=== PATIENT | male | born 1940 | race Caucasian/White ===

== ENCOUNTER 2016-10-08 06:04 | Day surgery (SDC) | payer MEDICARE, OTHER ==
[2016-10-08] MEDS ORDERED: Dextrose 5%-Lactated Ringers 1,000 ML IV SCH (07:00)
[2016-10-08] MEDS ORDERED: Glycopyrrolate 0.2 MG/ML 2 ML SYRINGE IVPUSH ONE (07:30)
[2016-10-08] MEDS ORDERED: fentaNYL 100 MCG/2 ML SDV ONE (07:32)
[2016-10-08] MEDS ORDERED: Midazolam 1 MG/ML 2 ML SDV ONE (07:32)
[2016-10-08] MEDS ORDERED: Propofol 200 MG/20 ML SDV ONE (07:32)
[2016-10-08 08:49] VITALS: BP 121/57
--- NOTE | 2016-10-17 09:10 | OR ---
DATE OF PROCEDURE: 10/08/2016 PREOPERATIVE DIAGNOSES: Epigastric pain, nausea, and emesis, status post proximal gastrectomy with Mateo-en-Y reconstruction. POSTOPERATIVE DIAGNOSES: 1. Erosive gastritis within the gastric pouch. 2. Partial small bowel obstruction with large amount of retained food in esophagus pouch and small bowel with apparent partial obstruction at the outlet of gastrojejunostomy. OPERATIVE PROCEDURE: Upper GI endoscopy with biopsies of gastric pouch for CLOtest. ANESTHESIA: IV sedation. INDICATION FOR PROCEDURE: This is a 75-year-old male presenting with some ongoing epigastric pain as well as intermittent nausea and emesis, appears to be having some problems with aspiration of esophageal contents intermittently as well. Plan is to proceed with upper GI endoscopy with biopsies and/or dilation as indicated. Potential risks including bleeding and perforation were discussed, and the patient wishes to proceed. DETAILS OF PROCEDURE: The patient was taken to the operating room and placed in a left lateral decubitus position. IV sedation was administered, after which, the upper GI endoscope was passed orally through the length of the esophagus and into the gastric pouch, and from there into the gastrojejunostomy. It was noted that medial, distal, and mid portions of the esophagus had some retained liquid and solid food within them. There was no significant esophageal dilation. As one passed into the gastric pouch, the gastrojejunostomy was unremarkable other than for there being some erosive changes within the gastric pouch at a point just below the esophagogastric junction. The gastric pouch site was filled with quite a bit of food. As one passed into the area of gastrojejunostomy, it was noted that the outlet of the gastrojejunostomy was quite narrowed and that the scope could not entirely pass through that area. This was quite tortuous and did not appear to be amenable to dilation in a safe manner. At that point, biopsies were obtained from the gastric pouch and sent for CLOtest for H. pylori. The scope was withdrawn, and the procedure was concluded. The patient was taken to the recovery room in satisfactory condition. At this point, the plan will be to proceed with revision of the area of the proximal gastrectomy and gastrojejunostomy, and this may potentially involve the resection of the distal esophagus, i.e. esophagogastrectomy versus the proximal-most stomach, i.e. a proximal gastrectomy with in each case a Mateo-en-Y reconstruction. The potential risks of the procedure were reviewed with the patient, his son and daughter who were present, and they wished to proceed with surgical intervention next Tuesday in early course of this to avoid pulmonary complications in a patient with otherwise fairly significant COPD would appear to be warranted. Bjorn Roca MD /[id number]
== END 2016-10-08 09:30 | disposition home or self-care (01) ==
LOC: JP.SDS 06:04
PROVIDERS: ATTEND Surgery
DX: K29.00 Acute gastritis without bleeding (principal); K56.69 Other intestinal obstruction; T18.128A Food in esophagus causing other injury, initial encounter; I10 Essential (primary) hypertension; K21.9 Gastro-esophageal reflux disease without esophagitis; Z90.3 Acquired absence of stomach [part of]; Z98.890 Other specified postprocedural states; F17.200 Nicotine dependence, unspecified, uncomplicated
CPT/HCPCS: 43239; 87081; J2250; J2704; J3010; J7042

== ENCOUNTER 2016-10-12 07:16 | Inpatient (IN) | payer MEDICARE, OTHER ==
[2016-10-12] MEDS ORDERED: Gabapentin 300 MG Cap PO ONE (07:30)
[2016-10-12] MEDS ORDERED: Celecoxib 200 MG Cap PO ONE (07:30)
[2016-10-12] MEDS ORDERED: Scopolamine 1.5 MG Transdermal Patch TOP SCH (07:30)
[2016-10-12] MEDS ORDERED: Acetaminophen 500 MG Tab PO ONE (07:30)
[2016-10-12] MEDS ORDERED: Bupivacaine 0.5%/EPINEPHrine 1:200,000 50 ML MDV ONE (08:28)
[2016-10-12] MEDS ORDERED: Meropenem 500 MG SDV ONE (08:29)
[2016-10-12] MEDS ORDERED: Dextrose 5%-Lactated Ringers 1,000 ML IV SCH (08:30)
[2016-10-12] MEDS ORDERED: Albuterol/Ipratropium 3.0-0.5 MG/3 ML Neb Soln NEB ONE (09:00)
[2016-10-12] MEDS ORDERED: cefOXitin 2 GM in Sodium Chloride 0.9% 50 ML IV ONE (09:15)
[2016-10-12] MEDS ORDERED: fentaNYL 100 MCG/2 ML SDV ONE (09:15)
[2016-10-12] MEDS ORDERED: Neostigmine Methylsulfate 1 MG/ML 5 ML Syringe ONE (09:16)
[2016-10-12] MEDS ORDERED: Midazolam 1 MG/ML 2 ML SDV ONE (09:16)
[2016-10-12] MEDS ORDERED: Ondansetron 4 MG/2 ML SDV ONE (09:16)
[2016-10-12] MEDS ORDERED: Rocuronium 50 MG/5 ML Vial ONE (09:16)
[2016-10-12] MEDS ORDERED: Dexamethasone 4 MG/ML SDV ONE (09:16)
[2016-10-12] MEDS ORDERED: Propofol 200 MG/20 ML SDV ONE (09:16)
[2016-10-12] MEDS ORDERED: Succinylcholine/Normal Saline 200 MG/10 ML Syringe ONE (09:16)
[2016-10-12] MEDS ORDERED: Lidocaine 2% 100 MG/5 ML Syringe IVPUSH ONE (09:30)
[2016-10-12] MEDS ORDERED: Ropivacaine 49 ML, Dexamethasone 8 MG, EPINEPHrine 0.4 MG, Sodium Chloride 0.9% 28.6 ML NERVRT ONE ×4 (09:30)
[2016-10-12] MEDS ORDERED: Ketamine 500 MG/5 ML MDV IV SCH (09:30)
[2016-10-12] MEDS: Lidocaine 0.4%/D5W 2 GM/500 ML BAG IV SCH (13:24)
[2016-10-12] MEDS ORDERED: Albuterol/Ipratropium 3.0-0.5 MG/3 ML Neb Soln INH PRN (13:35)
[2016-10-12] MEDS ORDERED: Metoclopramide 10 MG/2 ML SDV IV PRN (13:42)
[2016-10-12] MEDS ORDERED: diphenhydrAMINE 50 MG/ML SDV IV PRN (13:43)
[2016-10-12] MEDS ORDERED: hydrOXYzine HCl 50 MG/ML SDV IM PRN (14:00)
[2016-10-12] MEDS ORDERED: SCOPOLAMINE PATCH ASK TOP SCH (14:00)
[2016-10-12] MEDS ORDERED: Ondansetron 4 MG/2 ML SDV IVPUSH PRN (14:00)
[2016-10-12] MEDS: Labetalol 20 MG/4 ML Syringe IVPUSH PRN ×2 (14:05→15:55)
[2016-10-12] MEDS: Albuterol/Ipratropium 3.0-0.5 MG/3 ML Neb Soln INH SCH ×2 (14:44→21:25)
[2016-10-12] MEDS: cefOXitin 2 GM in Sodium Chloride 0.9% 50 ML IV SCH ×2 (15:32→21:25)
[2016-10-12] MEDS: Pantoprazole 40 MG Vial IVPUSH SCH (15:35)
[2016-10-12] MEDS: SCOPOLAMINE PATCH CHECK TOP SCH (15:42)
[2016-10-12] MEDS: Acetaminophen Soln 650 MG/20.3 ML UD Cup PO SCH ×2 (15:43→21:25)
[2016-10-12] MEDS: Heparin Sodium 5,000 Units/ML Vial SUBCUT SCH (18:06)
[2016-10-12] MEDS: MVI, Adult with Vitamin K 10 ML, Thiamine 200 MG, Chromium/Copper/Mang/Selen/Zn 1 ML in... IV SCH ×4 (18:07)
[2016-10-12] MEDS: Gabapentin 300 MG Cap PO SCH (21:25)
[2016-10-12] MEDS: Tamsulosin 0.4 MG Cap.ER PO SCH (21:25)
[2016-10-13] MEDS: Dextrose 5%-Lactated Ringers 1,000 ML IV SCH ×2 (00:34→07:03)
[2016-10-13] MEDS: Lidocaine 0.4%/D5W 2 GM/500 ML BAG IV SCH (02:32)
[2016-10-13] MEDS ORDERED: Iohexol 647 MG/ML 50 ML SDV PO STA (02:38)
[2016-10-13] MEDS: cefOXitin 2 GM in Sodium Chloride 0.9% 50 ML IV SCH (02:38)
[2016-10-13] MEDS: Acetaminophen Soln 650 MG/20.3 ML UD Cup PO SCH ×4 (04:19→21:49)
[2016-10-13] MEDS: Heparin Sodium 5,000 Units/ML Vial SUBCUT SCH ×2 (05:46→17:18)
[2016-10-13] MEDS ORDERED: Dextrose 5%-Lactated Ringers 1,000 ML IV SCH (07:13)
[2016-10-13] MEDS: Albuterol/Ipratropium 3.0-0.5 MG/3 ML Neb Soln INH SCH ×4 (07:21→21:49)
[2016-10-13] MEDS: Celecoxib 200 MG Cap PO SCH (08:00)
[2016-10-13] MEDS: SCOPOLAMINE PATCH CHECK TOP SCH (08:25)
[2016-10-13] MEDS: Gabapentin 300 MG Cap PO SCH ×3 (08:25→21:47)
--- NOTE | 2016-10-13 08:34 | PN ---
DATE OF SERVICE: 10/13/2016 SUBJECTIVE: Ariel is postop day #1. He is alert and orientated. He states his pain is controlled. He was up ambulating, once felt a little bit unsteady. Nursing reported some wheezing and crackles in the bases of his lungs. ORTEGA drain put out 15 mL/24 hours of a light pink serous drainage. REVIEW OF SYSTEMS: Remainder of review of systems negative for any pertinent positives and negatives. OBJECTIVE: GENERAL: Ariel Eric is a 75-year-old male. He is alert and orientated. Color good. VITAL SIGNS: TPR 97.6, 63, 18, blood pressure 132/61. HEENT: Negative. NECK: Supple. HEART: Regular rate and rhythm. LUNGS: Clear. Currently, I do not hear any rales, rhonchi, or wheezing. ABDOMEN: Dressings dry and intact. Abdominal binder is on. ORTEGA drain intact, as stated above. EXTREMITIES: Without peripheral edema and SCDs are on. ASSESSMENT: Diagnostic laparoscopy with lysis of adhesions, esophagogastrectomy with Mateo- en-Y esophagojejunostomy, repair of recurrent paraesophageal diaphragmatic hernia, removal of outlet adherent portion of the distal stomach adjacent to pressure block in the small bowel for obstruction at the gastrojejunostomy junction, obstruction at the formation of the previous jejunostomy, and recurrent paraesophageal hernia. Date of surgery, 10/12/2016. PLAN: 1. Decrease IV to 80 mL/hour. 2. Coumadin 7.5 mg today, ask in a.m. 3. Daily PT/INR x5. 4. Dressing off, may shower. 5. Discontinue telemetry after the lidocaine drip is in. 6. Start Flomax 0.4 mg p.o. daily. 7. Restart metoprolol tartrate 25 mg p.o. daily. 8. Good pulmonary toilet encouraged due to previous lung status and history of smoking. 9. Step-2 without cereal bariatric diet and Dietary consult. 10.We will evaluate p.r.n. or in a.m. Ginette Rivera PA-C /[id number]
[2016-10-13] MEDS ORDERED: Tamsulosin 0.4 MG Cap.ER PO SCH (09:00)
[2016-10-13] MEDS: Metoprolol Tartrate 25 MG Tab PO SCH (09:40)
--- NOTE | 2016-10-13 12:21 | CR ---
Contrast was the gastric pouch and within a small bowel loop eccentric to the right. No gross eviden ce for contrast leakage.
[2016-10-13] MEDS ORDERED: Warfarin 2.5 MG Tab PO ONE (13:00)
[2016-10-13] MEDS: MVI, Adult with Vitamin K 10 ML, Thiamine 200 MG, Chromium/Copper/Mang/Selen/Zn 1 ML in... IV SCH ×4 (15:27)
[2016-10-13] MEDS: Pantoprazole 40 MG Vial IVPUSH SCH (15:27)
[2016-10-13] MEDS ORDERED: Ondansetron 4 MG Tab.DIS PO PRN (15:52)
[2016-10-13] MEDS: Tamsulosin 0.4 MG Cap.ER PO SCH (21:47)
[2016-10-14] MEDS: Acetaminophen Soln 650 MG/20.3 ML UD Cup PO SCH (05:10)
[2016-10-14] MEDS: Heparin Sodium 5,000 Units/ML Vial SUBCUT SCH (05:10)
[2016-10-14] MEDS: Albuterol/Ipratropium 3.0-0.5 MG/3 ML Neb Soln INH SCH (07:21)
[2016-10-14] MEDS ORDERED: Pantoprazole 40 MG Tab.CR PO SCH (07:30)
[2016-10-14 07:35] VITALS: BP 129/64
[2016-10-14] MEDS: Metoprolol Tartrate 25 MG Tab PO SCH (08:37)
[2016-10-14] MEDS: Celecoxib 200 MG Cap PO SCH (08:37)
[2016-10-14] MEDS: Gabapentin 300 MG Cap PO SCH (08:38)
[2016-10-14] MEDS ORDERED: Magnesium Hydroxide 400 MG/5 ML Susp 30 ML Cup PO ONE (09:00)
[2016-10-14] MEDS ORDERED: Cyanocobalamin (Vitamin B12) 1,000 MCG/ML SDV IM ONE (09:00)
--- NOTE | 2016-10-14 11:01 | DISCH ---
ADMISSION DIAGNOSES: 1. Partial small-bowel obstruction. 2. Paraesophageal hernia. 3. Essential hypertension. 4. Dyslipidemia. 5. Esophageal reflux. 6. Atrial fibrillation. 7. Chronic anticoagulation therapy. 8. Tobacco use disorder. DISCHARGE DIAGNOSES: Diagnostic laparoscopy with lysis of adhesion, esophagogastrectomy with Mateo-en-Y esophagojejunostomy, repair of recurrent paraesophageal diaphragmatic hernia, removal of outlet obstruction adherent to portion of the distal stomach adjacent to the small bowel for obstruction at the gastrojejunostomy junction, obstruction at the formation of the previous jejunostomy, and recurrent paraesophageal hernia. Date of surgery, 10/12/2016. HISTORY: Ariel Eric is a 75-year-old male with increasing abdominal pain. After preoperative evaluation and discussion of possible risks and possible complications, he wished to proceed with surgical procedure. HOSPITAL COURSE: Ariel had his surgery on 10/12/2016. He had no operative complications. On postop day #1, he was started on a step-2 gastric bypass diet without cereal. His oral intake was adequate at 2500. He had ORTEGA drain, and they put out 85 mL. His pain is controlled. On postop day #2, Ariel Eric was able to be discharged to home. He received dietary instructions prior to being discharged. PHYSICAL EXAMINATION: GENERAL: Ariel Eric is a 75-year-old male. Alert and orientated. VITAL SIGNS: Height is 5 feet 8 inches. Weight is 206 pounds 9.6 ounces. TPR is 98.3, 94, 16, blood pressure 146/68. O2 saturations by pulse oximetry 93%. HEENT: Negative. NECK: Supple. HEART: Regular rate and rhythm. LUNGS: Clear. ABDOMEN: Sutures in place, 4x4 over ORTEGA drain site. Abdominal binder has been on. EXTREMITIES: Without peripheral edema. DISPOSITION: Discharged to home. CONDITION: Stable and improving. FOLLOWUP APPOINTMENT: Ginette Rivera PA-C, on 10/20/2016 at 10:15 a.m. HOME MEDICATIONS: 1. Tylenol 650 mg q.6 hours for pain, continue for 2 weeks, then as needed, and he should get one bottle at 650 mg per 20.3 mL. 2. Celebrex 200 mg oral daily, #14. 3. Zofran 4 mg oral every 4 hours p.r.n. nausea. 4. Protonix 40 mg oral daily, #30. 5. He is to resume his home medications of Flomax 0.4 mg oral daily; warfarin 5 mg every Tuesday, Tuesday, Tuesday, Tuesday, and Tuesday and 7.5 mg every Tuesday and . DIET: Step-2 gastric bypass diet without cereal for 2 weeks. Drink 8 to 10 glasses of water a day. ACTIVITY: No lifting greater than 10 pounds for 2 weeks. Walk 6 times inside your home. DISCHARGE INSTRUCTIONS: Driving, do not drive while on pain medication. May shower. Notify provider if any fever, increased pain, nausea, or vomiting. Keep site clean and dry. Wear abdominal binder for 2 weeks and then as tolerated. Use incentive spirometer 10 times every hour while awake.
[2016-10-14] MEDS ORDERED: Warfarin 2.5 MG Tab PO SCH (13:00)
--- NOTE | 2016-10-23 16:58 | OR ---
DATE OF PROCEDURE: 10/12/2016 PREOPERATIVE DIAGNOSES: 1. Obstruction of gastrojejunostomy with marked eschar formation at and around the gastrojejunostomy. 2. Recurrent paraesophageal diaphragmatic hernia. OPERATIVE PROCEDURES: 1. Diagnostic laparoscopy with lysis of adhesions and. a. Esophagogastrectomy with Mateo-en-Y esophagojejunostomy (20298). b. Repair of paraesophageal diaphragmatic hernia (46448). c. Removal of additional adherent portion of the more distal stomach adherent to previous blind end of small bowel. ANESTHESIA: General. 911 DISPATCHER: NOMI May student. INDICATION FOR PROCEDURE: This is a 75-year-old, status post previous Mateo-en-Y anastomosis to the proximal gastrectomy for refractory gastroesophageal reflux disease and now presents with an obstructive pattern at the gastrojejunostomy. Plan is to do diagnostic laparoscopy with re-resection of that area with a Mateo-en-Y reconstruction. The potential risks of the procedure including bleeding, infection, injury to underlying viscera, possible leaks from GI tract anastomoses were reviewed, and the patient wishes to proceed. DETAILS OF PROCEDURE: The patient was taken to the operating room and placed in a supine position. After general endotracheal anesthesia was induced, he was converted to a lithotomy position. A Lorenz catheter was inserted and the bilateral transverse abdominis plane blocks were placed under ultrasound guidance. The guidewire was then prepped and draped. At 15 cm inferior, 5 cm left of xiphoid process, transverse incision was made and the peritoneal cavity entered under direct vision with Optiview trocar inflated to 15 mmHg pressure with CO2. Laparoscope was then reinserted and following this, 5 additional trocars were placed across the mid abdomen and general exploration was undertaken. As expected, the patient had some recurrence of the paraesophageal diaphragmatic hernia and after careful dissection reduction of this, there was noted to be dense scar around the gastrojejunostomy. The only safe plane of dissection appeared to be the esophagus, perhaps a cm or two above the esophagogastric junction. This area was encircled at that point and the esophagus then divided with two BLAIR black loads. The Mateo limb was then divided as that approached the gastrojejunostomy with a rodriguez load and the mesentery to the small bowel then divided with Harmonic scalpel. The specimen consisting of the previous gastric pouch and gastrojejunostomy was then resected. This included also the distal esophagus, so this would be an esophagogastrectomy specimen. Once the vascular attachments were divided with Harmonic scalpel, that specimen was noted to have an additional adherence to the previously bypassed more distal stomach. This area was then resected as well. After detaching it from the Mateo limb, the separate stomach resection was then accomplished with a BLAIR black load as well. Both specimens were then delivered from the field. Paraesophageal diaphragmatic hernia was then re-repaired with some additional 0 Ethibond sutures reinforced with PTFE pledgets, bites of the esophagus were obtained to help maintain an intraabdominal location. The anvil of a 25-mm EEA stapler was then attached to [place] sump type tube. The latter was brought down through the mouth and taken out through a small opening in the divided esophagus allowing the anvil to be pulled down within it as well. The Mateo limb easily came up to the divided esophagus opened and the main body of the EEA stapler passed several cm into it, brought up the anvil and fired, thus creating the esophagojejunostomy. Upon removal of the stapler, double donuts of mucosa were noted within it. The small bowel was closed off with a vascular staple line. The esophagojejunostomy was reinforced with some 0-Ethibond seromuscular stitch along with fibrin sealant. The leak test was accomplished with the area being submerged with antibiotic-containing saline solution. No leaks were identified and two Michael-Verma drains were then placed through the left subcostal trocar sites. The trocars were removed. The peritoneal cavity was deflated. Skin was closed with some 4-0 Vicryl skin stitch. Dressing was applied. The patient was taken to the recovery room in satisfactory condition. Bjorn Roca MD /[id number]
== END 2016-10-14 09:50 | disposition home or self-care (01) | DRG 328 ==
LOC: JP.SDS 07:16 → JP.SDSSCHI 07:16 → EDSTATUS 09:45 → JP.2SS 12:45 → UNDOADMIN 12:45
PROVIDERS: ADMIT Surgery; ATTEND Surgery
PROC: 0DB64ZZ Excision of Stomach, Percutaneous Endoscopic Approach (ICD-10-PCS; principal; 2016-10-12)
PROC: 0DB44ZZ Excision of Esophagogastric Junction, Percutaneous Endoscopic Approach (ICD-10-PCS; principal; 2016-10-12)
PROC: 0BQS4ZZ (ICD-10-PCS; principal; 2016-10-12)
PROC: 3E0T3BZ Introduction of Anesthetic Agent into Peripheral Nerves and Plexi, Percutaneous Approach (ICD-10-PCS; principal; 2016-10-12)
PROC: 0BQR4ZZ (ICD-10-PCS; principal; 2016-10-12)
DX: K56.5 Intestinal adhesions [bands] with obstruction (postinfection) (principal); K44.9 Diaphragmatic hernia without obstruction or gangrene; I10 Essential (primary) hypertension; E78.5 Hyperlipidemia, unspecified; Z72.0 Tobacco use; K21.9 Gastro-esophageal reflux disease without esophagitis; I48.91 Unspecified atrial fibrillation; Z79.01 Long term (current) use of anticoagulants; Z98.84 Bariatric surgery status; Z98.0 Intestinal bypass and anastomosis status
CPT/HCPCS: 36415; 74240; 74240-26; 80053; 83735; 84100; 85027; 85610; 88305; 93005; 94640; 94640-76; A9270-GY; C9113; J0171; J0694; J1100; J1644; J2001; J2185; J2250; J2405; J2704; J2795; J3010; J3411; J3420; J7030; J7040; J7042; J7050; J7620; Q9967

== ENCOUNTER 2019-09-25 15:30 | Inpatient (IN) | payer MEDICARE ==
[2019-09-25] MEDS ORDERED: oxyCODONE 5 MG Tab PO PRN (15:31)
[2019-09-25] MEDS ORDERED: Sodium Chloride 0.9% 10 ML Syringe FLUSH PRN (15:31)
[2019-09-25] MEDS ORDERED: Ondansetron 4 MG/2 ML SDV IV PRN (15:31)
[2019-09-25] MEDS ORDERED: Polyethylene Glycol 3350 Powder 17 GM Packet PO PRN (15:31)
--- NOTE | 2019-09-25 15:39 | PCM.HP.2 ---
H&P History of Present Illness - General Date of Service: 09/25/19 Admit Problem/Dx: Admission Diagnosis/Problem Admission Diagnosis/Problem Rhabdomyolysis Source of Information: Patient, Provider, RN Notes Reviewed History Limitations: Reports: No Limitations - History of Present Illness Initial Comments - Free Text/Narative: Mr. Eric is a 78-year-old gentleman who was admitted as a direct admission from the clinic with a greater trochanteric hip fracture and rhabdomyolysis secondary to a fall last night and having spent the night on the bathroom floor. He reports that he unfortunately fell last night in the bathroom and was unable to get himself up so he spent the night on the floor. He noted significant hip pain and stiffness when he was able to get up this morning. He presented to the walk-in clinic for further evaluation. X-ray showed a greater trochanteric fracture, which is felt to not require surgical intervention. He is felt to be able to weight-bear but has had difficulty with ambulation. Laboratory tests obtained in the walk-in clinic show significant elevation in CK level at 6000 as well as an increase in his creatinine from baseline. - Related Data Allergies/Adverse Reactions: Allergies Allergy/AdvReac Type Severity Reaction Status Date / Time No Known Allergies Allergy Verified 10/12/16 08:18 Home Medications: Home Meds Metoprolol Tartrate 25 mg PO DAILY 07/26/13 [History] Warfarin Sliding Scale [Coumadin Sliding Scale] 5 mg PO DAILY 06/05/16 [History] Albuterol [Ventolin HFA] 1 - 2 puff PO Q6HR PRN 09/25/19 [History] Warfarin [Coumadin] 2.5 mg PO DAILY 09/25/19 [History] Past Medical History HEENT History: Reports: Allergic Rhinitis, Impaired Vision Cardiovascular History: Reports: Afib, Hypertension Gastrointestinal History: Reports: Hiatal Hernia, Other (See Below) Other Gastrointestinal History: perforated ulcer, temporary g tube Genitourinary History: Reports: Prostate Disorder Musculoskeletal History: Reports: Arthritis, Fracture Other Musculoskeletal History: history right wrist fracture Endocrine/Metabolic History: Reports: Obesity/BMI 30+ Hematologic History: Reports: Blood Transfusion(s) - Infectious Disease History Infectious Disease History: Reports: Chicken Pox, Measles - Past Surgical History HEENT Surgical History: Reports: None Cardiovascular Surgical History: Reports: None GI Surgical History: Reports: Bariatric Procedure, Colonoscopy, EGD, Hernandez Fundoplication Male Surgical History: Reports: None Endocrine Surgical History: Reports: None Musculoskeletal Surgical History: Reports: Other (See Below) Other Musculoskeletal Surgeries/Procedures:: pins in right wrist after wrist surg. pins removed later Social & Family History - Family History Family Medical History: Noncontributory - Caffeine Use Caffeine Use: Reports: Coffee, Soda H&P Review of Systems - Review of Systems: Review Of Systems: See Below General: Reports: No Symptoms HEENT: Reports: No Symptoms Pulmonary: Reports: No Symptoms Cardiovascular: Reports: No Symptoms Gastrointestinal: Reports: No Symptoms Genitourinary: Reports: No Symptoms Musculoskeletal: Reports: Other (Hip and muscle pain) Skin: Reports: No Symptoms Psychiatric: Reports: No Symptoms Neurological: Reports: No Symptoms Hematologic/Lymphatic: Reports: No Symptoms Immunologic: Reports: No Symptoms Exam - Exam Exam: See Below - Exam Quality Assessment: DVT Prophylaxis General: Alert, Oriented, Cooperative, Moderate Distress HEENT: Conjunctiva Clear, Normal Nasal Septum, Posterior Pharynx Clear, Pupils Equal. No: Hearing Intact, Mucosa Moist & [place] Neck: Supple, Trachea Midline, +2 Carotid Pulse wo Bruit Lungs: Clear to Auscultation, Normal Respiratory Effort, Decreased Breath Sounds Cardiovascular: Regular Rate, Regular Rhythm, Normal S1, Normal S2, Systolic Murmur, Diastolic Murmur GI/Abdominal Exam: Soft, Non-Tender, No Organomegaly, No Distention Back Exam: Normal Inspection, Full Range of Motion Extremities: Other (Hip pain, muscle stiffness) Skin: Warm, Dry, Intact Neurological: Cranial Nerves Intact, Strength Equal Bilateral, Normal Speech, Normal Tone, Sensation Intact. No: Focal Deficit Neuro Extensive - Mental Status: Alert, Oriented x3, Normal Mood/Affect, Normal Cognition, Memory Intact - Patient Data Result Diagrams: 09/25/19 15:31 *Q Meaningful Use (ADM) - VTE Risk Assess *Q Each Risk Factor Represents 1 Point: Obesity ( BMI > 25 kg/m2), Abnormal Pulmonary Function (COPD) Total Score 1 Point Risk Factors: 2 Each Risk Factor Represents 2 Points: None Total Score 2 Point Risk Factors: 0 Each Risk Factor Represents 3 Points: Age 75 Years or Greater Total Score 3 Point Risk Factors: 3 Each Risk Factor Represents 5 Points: Hip, Pelvis or Leg Fracture, Less than 1 month Total Score 5 Point Risk Factors: 5 Venous Thromboembolism Risk Factor Score *Q: 10 Problem List Initiated/Reviewed/Updated: Yes Orders Last 24hrs: Active Orders 24 hr Category Date Time Status Patient Status [ADT] Routine ADT 09/25/19 15:31 Ordered Ambulate [RC] QID Care 09/25/19 15:31 Ordered Height and Weight [RC] DAILY Care 09/25/19 15:31 Ordered Intake and Output [RC] QSHIFT Care 09/25/19 15:31 Ordered Notify Provider Consults [RC] ASDIRECTED Care 09/25/19 15:37 Ordered Notify Provider Vital Signs [RC] ASDIRECTED Care 09/25/19 15:31 Ordered Oxygen Therapy [RC] PRN Care 09/25/19 15:31 Ordered Peripheral IV Care [RC] . DIRECTED Care 09/25/19 15:34 Ordered Up With Assistance [RC] ASDIRECTED Care 09/25/19 15:31 Ordered Up to Chair [RC] QID Care 09/25/19 15:31 Ordered VTE/DVT Education [RC] Per Unit Routine Care 09/25/19 15:31 Ordered Vital Signs [RC] Q4H Care 09/25/19 15:31 Ordered Consult to Physician [CONS] Routine Cons 09/25/19 15:31 Ordered PT Evaluation and Treatment [CONS] Routine Cons 09/25/19 15:31 Ordered Regular Diet [DIET] Diet 09/25/19 Lunch Ordered BASIC METABOLIC PANEL,BMP [CHEM] AM Lab 09/26/19 05:11 Ordered BASIC METABOLIC PANEL,BMP [CHEM] Stat Lab 09/25/19 15:31 Ordered CBC WITH AUTO DIFF [HEME] AM Lab 09/26/19 05:11 Ordered CREATINE KINASE,CK [CHEM] AM Lab 09/26/19 05:11 Ordered CREATINE KINASE,CK [CHEM] Stat Lab 09/25/19 15:31 Ordered Acetaminophen [Tylenol] Med 09/25/19 15:31 Ordered 650 mg PO Q4H PRN Docusate Sodium/Sennosides [Senna Plus] Med 09/25/19 15:45 Ordered 1 tab PO BID Enoxaparin [Lovenox] Med 09/25/19 15:45 Ordered 40 mg SUBCUT DAILY Ondansetron [Zofran] Med 09/25/19 15:31 Ordered 4 mg IV Q4H PRN Sodium Chloride 0.9% @ 125 MLS/HR (1000ml) Med 09/25/19 19:45 Ordered Sodium Chloride 0.9% [Normal Saline] 1,000 ml IV ASDIRECTED Sodium Chloride 0.9% [Normal Saline] 1,000 ml Med 09/25/19 15:45 Ordered IV ASDIRECTED Sodium Chloride 0.9% [Saline Flush] Med 09/25/19 15:31 Ordered 10 ml FLUSH ASDIRECTED PRN oxyCODONE Med 09/25/19 15:31 Ordered 5 mg PO Q4H PRN polyethylene glycoL 3350 [MiraLAX] Med 09/25/19 15:31 Ordered 17 gm PO DAILY PRN Peripheral IV Insertion Adult [OM.PC] Routine Oth 09/25/19 15:31 Ordered Resuscitation Status Routine Resus Stat 09/25/19 15:31 Ordered Assessment/Plan Comment:: ASSESSMENT AND PLAN GREATER TROCHANTERIC HIP FRACTURE-on review of x-rays felt to be a stable fracture, not requiring surgical intervention, he will be able to weight-bear. -Physical therapy consult -Orthopedic follow-up by Dr. Hernandez RHABDOMYOLYSIS-secondary to having been on the floor all night -Vigorous IV fluid replacement -Reassess CK level in a.m. ACUTE KIDNEY INJURY-likely secondary to dehydration as well as rhabdomyolysis -Closely monitor urine output and renal function MAINTENANCE ISSUES -DVT prophylaxis; current therapy with warfarin should provide adequate DVT prophylaxis -GI prophylaxis; not indicated -Lorenz catheter; not indicated -Nutrition; regular diet -Nicotine dependence; nicotine patch CODE STATUS-FULL CODE ADMISSION STATUS-patient will be admitted to inpatient status, expect at least a 2 night hospital stay for evaluation and management of problems as outlined above. At the time of this admission I do not reasonably expected evaluation and management of this problem will require more than a 96 hour hospital stay. DISPOSITION-anticipate discharge to home after the hospital stay. PRIMARY CARE PROVIDER-Dr. Ramos - Mortality Measure Prognosis:: Good
[2019-09-25] MEDS ORDERED: Sodium Chloride 0.9% 1,000 ML IV SCH (15:45)
[2019-09-25] MEDS ORDERED: Enoxaparin 40 MG/0.4 ML Syringe SUBCUT SCH (17:00)
[2019-09-25] MEDS ORDERED: Albuterol 8 GM Inhaler INH PRN (17:46)
[2019-09-25] MEDS ORDERED: Nicotine Polacrilex 2 MG Gum CHEW PRN (17:56)
[2019-09-25] MEDS: Nicotine 14 MG/24 Hr Patch TRDERM SCH (18:18)
[2019-09-25] MEDS: Sodium Chloride 0.9% 1,000 ML IV SCH (19:04)
[2019-09-26] MEDS: Sodium Chloride 0.9% 1,000 ML IV SCH (03:06)
[2019-09-26] MEDS ORDERED: Phytonadione 1 MG in Sodium Chloride 0.9% 50 ML IV ONE (05:13)
[2019-09-26] MEDS: Metoprolol Tartrate 25 MG Tab PO SCH (08:40)
[2019-09-26] MEDS: Nicotine 14 MG/24 Hr Patch TRDERM SCH ×2 (08:40→09:40)
[2019-09-26] MEDS ORDERED: Warfarin 2.5 MG Tab PO SCH (09:00)
[2019-09-26] MEDS ORDERED: Potassium Chloride 20 MEQ Tab.ER PO ONE ×2 (09:00→17:00)
--- NOTE | 2019-09-26 11:57 | PCM.PN ---
- General Info Date of Service: 09/26/19 Subjective Update: Mr. Eric is been stable since admission. Good improvement in CK level as well as kidney function with IV hydration overnight. He has been ambulating in the hallways with use of a walker and seems to be getting around fairly well. Functional Status: Reports: Tolerating Diet, Ambulating, Urinating - Review of Systems General: Reports: No Symptoms Pulmonary: Reports: No Symptoms Cardiovascular: Reports: No Symptoms Gastrointestinal: Reports: No Symptoms Musculoskeletal: Reports: Other (Hip pain secondary to fracture) - Patient Data Vitals - Most Recent: Last Vital Signs Temp 97.9 F 09/26/19 07:28 Pulse 82 09/26/19 08:40 Resp 16 09/26/19 07:28 BP 104/72 09/26/19 08:40 Pulse Ox 94 L 09/26/19 07:28 Weight - Most Recent: 226 lb 11.2 oz I&O - Last 24 Hours: Intake & Output 09/25/19 09/26/19 09/26/19 22:59 06:59 14:59 Intake Total 750 3760 300 Output Total 275 800 800 Balance 475 2960 -500 Lab Results Last 24 Hours: Laboratory Results - last 24 hr 09/25/19 09/26/19 09/26/19 Range/Units 15:31 04:00 04:00 WBC 11.7 H (4.5-11.0) K/uL RBC 5.18 (4.30-5.90) M/uL Hgb 11.3 L D (12.0-15.0) g/dL Hct 37.4 L (40.0-54.0) % MCV 72 L (80-98) fL MCH 22 L (27-31) pg MCHC 30 L (32-36) % Plt Count 240 (150-400) K/uL Neut % (Auto) 81 H (36-66) % Lymph % (Auto) 9 L (24-44) % [place] % (Auto) 9 H (2-6) % Eos % (Auto) 0 L (2-4) % Baso % (Auto) 0 (0-1) % PT (9.5-12.0) sec INR (0.80-1.20) Sodium 141 139 L (140-148) mmol/L Potassium 3.8 3.5 L (3.6-5.2) mmol/L Chloride 104 105 (100-108) mmol/L Carbon Dioxide 25 24 (21-32) mmol/L Anion Gap 15.8 H 13.5 (5.0-14.0) mmol/L BUN 27 H D 25 H (7-18) mg/dL Creatinine 2.0 H D 1.5 H (0.8-1.3) mg/dL Est Cr Clr Drug Dosing TNP 40.53 Estimated GFR (MDRD) 33 L 46 L (>60) Glucose 126 H 131 H (74-106) mg/dL Calcium 9.4 8.6 (8.5-10.1) mg/dL Creatine Kinase 2762 H (39-308) U/L 09/26/19 Range/Units 04:00 WBC (4.5-11.0) K/uL RBC (4.30-5.90) M/uL Hgb (12.0-15.0) g/dL Hct (40.0-54.0) % MCV (80-98) fL MCH (27-31) pg MCHC (32-36) % Plt Count (150-400) K/uL Neut % (Auto) (36-66) % Lymph % (Auto) (24-44) % [place] % (Auto) (2-6) % Eos % (Auto) (2-4) % Baso % (Auto) (0-1) % PT 62.2 H (9.5-12.0) sec INR 6.40 H* (0.80-1.20) Sodium (140-148) mmol/L Potassium (3.6-5.2) mmol/L Chloride (100-108) mmol/L Carbon Dioxide (21-32) mmol/L Anion Gap (5.0-14.0) mmol/L BUN (7-18) mg/dL Creatinine (0.8-1.3) mg/dL Est Cr Clr Drug Dosing Estimated GFR (MDRD) (>60) Glucose (74-106) mg/dL Calcium (8.5-10.1) mg/dL Creatine Kinase (39-308) U/L Med Orders - Current: Current Medications Acetaminophen (Tylenol) 650 mg PO Q4H PRN PRN Reason: Pain (Mild 1-3)/fever Albuterol (Ventolin Hfa) 0 gm INH Q4H PRN PRN Reason: Cough Enoxaparin Sodium (Lovenox) 40 mg SUBCUT Q24H [facility] Last Admin: 09/25/19 18:19 Dose: 40 mg Metoprolol Tartrate (Lopressor) 25 mg PO DAILY [facility] Last Admin: 09/26/19 08:40 Dose: 25 mg Nicotine (Habitrol) 14 mg TRDERM DAILY [facility] Last Admin: 09/26/19 09:40 Dose: Not Given Nicotine Polacrilex (Nicorelief) 2 mg CHEW Q1H PRN PRN Reason: Other Ondansetron HCl (Zofran) 4 mg IV Q4H PRN PRN Reason: Nausea/Vomiting Oxycodone HCl (Oxycodone) 5 mg PO Q4H PRN PRN Reason: Pain (moderate 4-6) Last Admin: 09/25/19 22:09 Dose: 5 mg Polyethylene Glycol (Miralax) 17 gm PO DAILY PRN PRN Reason: Constipation Senna/Docusate Sodium (Senna Plus) 1 tab PO BID [facility] Last Admin: 09/26/19 08:39 Dose: 1 tab Sodium Chloride (Saline Flush) 10 ml FLUSH ASDIRECTED PRN PRN Reason: Keep Vein Open Discontinued Medications Sodium Chloride (Normal Saline) 1,000 mls @ 500 mls/hr IV ASDIRECTED [facility] Stop: 09/25/19 19:46 Last Admin: 09/25/19 17:03 Dose: 500 mls/hr Sodium Chloride (Normal Saline) 1,000 mls @ 125 mls/hr IV ASDIRECTED [facility] Last Admin: 09/26/19 03:06 Dose: 125 mls/hr Phytonadione 1 mg/ Sodium (Chloride) 50.5 mls @ 100 mls/hr IV ONETIME ONE Stop: 09/26/19 05:43 Last Admin: 09/26/19 05:38 Dose: 100 mls/hr Potassium Chloride (Klor-Con M20) 40 meq PO ONETIME ONE Stop: 09/26/19 09:01 Last Admin: 09/26/19 09:41 Dose: 40 meq Warfarin Sodium (Coumadin) 2.5 mg PO DAILY [facility] - Exam Quality Assessment: DVT Prophylaxis General: Alert, Oriented, Cooperative, Mild Distress Lungs: Clear to Auscultation, Normal Respiratory Effort, Decreased Breath Sounds Cardiovascular: Regular Rate, Regular Rhythm, No Murmurs GI/Abdominal Exam: Soft, Non-Tender, No Organomegaly, No Distention Sepsis Event Note - Evaluation Sepsis Screening Result: No Definite Risk - Focused Exam Vital Signs: Vital Signs Temp Pulse Pulse Resp BP BP Pulse Ox 09/26/19 08:40 82 104/72 09/26/19 07:28 97.9 F 67 16 104/72 94 L 09/26/19 03:00 97.2 F 110 H 16 137/89 91 L Date Exam was Performed: 09/26/19 Time Exam was Performed: 11:55 - Problem List Review Problem List Initiated/Reviewed/Updated: Yes - My Orders Last 24 Hours: My Active Orders 09/25/19 15:31 Patient Status [ADT] Routine Ambulate [RC] QID Height and Weight [RC] 0500 Intake and Output [RC] QSHIFT Notify Provider Vital Signs [RC] ASDIRECTED Oxygen Therapy [RC] PRN Up With Assistance [RC] ASDIRECTED Up to Chair [RC] QID VTE/DVT Education [RC] Per Unit Routine Vital Signs [RC] Q4H Consult to Physician [CONS] Routine PT Evaluation and Treatment [CONS] Routine Acetaminophen [Tylenol] 650 mg PO Q4H PRN Ondansetron [Zofran] 4 mg IV Q4H PRN Sodium Chloride 0.9% [Saline Flush] 10 ml FLUSH ASDIRECTED PRN oxyCODONE 5 mg PO Q4H PRN polyethylene glycoL 3350 [MiraLAX] 17 gm PO DAILY PRN Peripheral IV Insertion Adult [OM.PC] Routine Resuscitation Status Routine 09/25/19 15:34 Peripheral IV Care [RC] Q12H 09/25/19 15:37 Notify Provider Consults [RC] ASDIRECTED 09/25/19 15:45 Docusate Sodium/Sennosides [Senna Plus] 1 tab PO BID 09/25/19 17:00 Enoxaparin [Lovenox] 40 mg SUBCUT Q24H 09/25/19 17:46 Albuterol [Ventolin HFA] 0 gm INH Q4H PRN 09/25/19 17:56 Nicotine Polacrilex [Nicorelief] 2 mg CHEW Q1H PRN 09/25/19 18:00 Nicotine [Habitrol] 14 mg TRDERM DAILY 09/25/19 Lunch Regular Diet [DIET] 09/26/19 09:00 Metoprolol Tartrate [Lopressor] 25 mg PO DAILY 09/26/19 11:55 Convert IV to Saline Lock [OM.PC] Routine 09/26/19 17:00 Potassium Chloride [Klor-Con M20] 40 meq PO ONETIME ONE 09/27/19 05:00 BASIC METABOLIC PANEL,BMP [CHEM] Timed CBC WITH AUTO DIFF [HEME] Timed CREATINE KINASE,CK [CHEM] Timed INR,PT,PROTHROMBIN TIME [COAG] Timed - Plan Plan:: ASSESSMENT AND PLAN GREATER TROCHANTERIC HIP FRACTURE-on review of x-rays felt to be a stable fracture, not requiring surgical intervention, he will be able to weight-bear. -Physical therapy consult -Orthopedic follow-up by Dr. Hernandez RHABDOMYOLYSIS-very good improvement in CK level with IV hydration -Saline lock IV -Reassess CK level in a.m. ACUTE KIDNEY INJURY-renal function has improved with hydration -Closely monitor urine output and renal function MAINTENANCE ISSUES -DVT prophylaxis; current therapy with warfarin should provide adequate DVT prophylaxis -GI prophylaxis; not indicated -Lorenz catheter; not indicated -Nutrition; regular diet -Nicotine dependence; nicotine patch CODE STATUS-FULL CODE ADMISSION STATUS-patient will be admitted to inpatient status, expect at least a 2 night hospital stay for evaluation and management of problems as outlined above. At the time of this admission I do not reasonably expected evaluation and management of this problem will require more than a 96 hour hospital stay. DISPOSITION-anticipate discharge to home after the hospital stay. PRIMARY CARE PROVIDER-Dr. Ramos
--- NOTE | 2019-09-26 13:51 | PCM.CONS ---
H&P History of Present Illness - General Date of Service: 09/26/19 Admit Problem/Dx: Admission Diagnosis/Problem Admission Diagnosis/Problem Rhabdomyolysis Source of Information: Patient, Provider History Limitations: Reports: No Limitations - History of Present Illness Initial Comments - Free Text/Narative: 78 year old admitted from clinic with history of a fall in his bathroom Tuesday night. He was unable to get up and was on the bathroom floor overnight. Presented to the clinic today and was found to have a fracture of the left greater trochanter and rhabdomyolysis. He was admitted from the clinic and I was asked to consult on the hip fracture. He is doing better today and was sitting up at the side of the bed at the time of my visit with him. Onset of Symptoms: Reports: Sudden Symptom Onset Date: 09/24/19 Location: Reports: Lower Extremity, Left (left hip) Quality: Reports: Sharp, Throbbing Severity: Moderate Improves with: Reports: Rest Worsens with: Reports: Other (weight bearing), Movement - Related Data Allergies/Adverse Reactions: Allergies Allergy/AdvReac Type Severity Reaction Status Date / Time No Known Allergies Allergy Verified 10/12/16 08:18 Home Medications: Home Meds Metoprolol Tartrate 25 mg PO DAILY 07/26/13 [History] Warfarin Sliding Scale [Coumadin Sliding Scale] 5 mg PO DAILY 06/05/16 [History] Albuterol [Ventolin HFA] 1 - 2 puff PO Q6HR PRN 09/25/19 [History] Warfarin [Coumadin] 2.5 mg PO DAILY 09/25/19 [History] Past Medical History HEENT History: Reports: Allergic Rhinitis, Impaired Vision Cardiovascular History: Reports: Afib, Hypertension Gastrointestinal History: Reports: Hiatal Hernia, Other (See Below) Other Gastrointestinal History: perforated ulcer, temporary g tube Genitourinary History: Reports: Prostate Disorder Musculoskeletal History: Reports: Arthritis, Fracture Other Musculoskeletal History: history right wrist fracture Endocrine/Metabolic History: Reports: Obesity/BMI 30+ Hematologic History: Reports: Blood Transfusion(s) - Infectious Disease History Infectious Disease History: Reports: Chicken Pox, Measles - Past Surgical History HEENT Surgical History: Reports: None Cardiovascular Surgical History: Reports: None GI Surgical History: Reports: Bariatric Procedure, Colonoscopy, EGD, Hernandez Fundoplication Male Surgical History: Reports: None Endocrine Surgical History: Reports: None Musculoskeletal Surgical History: Reports: Other (See Below) Other Musculoskeletal Surgeries/Procedures:: pins in right wrist after wrist surg. pins removed later Social & Family History - Family History Family Medical History: Noncontributory - Tobacco Use Smoking Status *Q: Current Every Day Smoker Years of Tobacco use: 70 Packs/Tins Daily: 1 Used Tobacco, but Quit: No Second Hand Smoke Exposure: No - Caffeine Use Caffeine Use: Reports: Coffee, Soda Other Caffeine Use: 1-2 c/coffee 1 can soda in evening - Recreational Drug Use Recreational Drug Use: No H&P Review of Systems - Review of Systems: Review Of Systems: See Below General: Reports: No Symptoms Musculoskeletal: Reports: Leg Pain Psychiatric: Reports: No Symptoms Neurological: Reports: No Symptoms Exam - Exam Exam: See Below - Vital Signs Vital Signs: Last Vital Signs Temp 37.2 C 09/26/19 12:11 Pulse 107 H 09/26/19 12:11 Resp 16 09/26/19 12:11 BP 139/90 09/26/19 12:11 Pulse Ox 94 L 09/26/19 12:11 Weight: 102.512 kg - Exam General: Alert, Oriented Extremities: Limited Range of Motion, Other (tender over trochanter, pain with weight bearing) Neuro Extensive - Mental Status: Alert, Oriented x3, Normal Mood/Affect, Normal Cognition, Memory Intact Psychiatric: Alert, Normal Affect, Normal Mood - Patient Data Lab Results Last 24 hrs: Laboratory Results - last 24 hr 09/25/19 09/26/19 09/26/19 Range/Units 15:31 04:00 04:00 WBC 11.7 H (4.5-11.0) K/uL RBC 5.18 (4.30-5.90) M/uL Hgb 11.3 L D (12.0-15.0) g/dL Hct 37.4 L (40.0-54.0) % MCV 72 L (80-98) fL MCH 22 L (27-31) pg MCHC 30 L (32-36) % Plt Count 240 (150-400) K/uL Neut % (Auto) 81 H (36-66) % Lymph % (Auto) 9 L (24-44) % [place] % (Auto) 9 H (2-6) % Eos % (Auto) 0 L (2-4) % Baso % (Auto) 0 (0-1) % PT (9.5-12.0) sec INR (0.80-1.20) Sodium 141 139 L (140-148) mmol/L Potassium 3.8 3.5 L (3.6-5.2) mmol/L Chloride 104 105 (100-108) mmol/L Carbon Dioxide 25 24 (21-32) mmol/L Anion Gap 15.8 H 13.5 (5.0-14.0) mmol/L BUN 27 H D 25 H (7-18) mg/dL Creatinine 2.0 H D 1.5 H (0.8-1.3) mg/dL Est Cr Clr Drug Dosing TNP 40.53 Estimated GFR (MDRD) 33 L 46 L (>60) Glucose 126 H 131 H (74-106) mg/dL Calcium 9.4 8.6 (8.5-10.1) mg/dL Creatine Kinase 2762 H (39-308) U/L 09/26/19 Range/Units 04:00 WBC (4.5-11.0) K/uL RBC (4.30-5.90) M/uL Hgb (12.0-15.0) g/dL Hct (40.0-54.0) % MCV (80-98) fL MCH (27-31) pg MCHC (32-36) % Plt Count (150-400) K/uL Neut % (Auto) (36-66) % Lymph % (Auto) (24-44) % Davis % (Auto) (2-6) % Eos % (Auto) (2-4) % Baso % (Auto) (0-1) % PT 62.2 H (9.5-12.0) sec INR 6.40 H* (0.80-1.20) Sodium (140-148) mmol/L Potassium (3.6-5.2) mmol/L Chloride (100-108) mmol/L Carbon Dioxide (21-32) mmol/L Anion Gap (5.0-14.0) mmol/L BUN (7-18) mg/dL Creatinine (0.8-1.3) mg/dL Est Cr Clr Drug Dosing Estimated GFR (MDRD) (>60) Glucose (74-106) mg/dL Calcium (8.5-10.1) mg/dL Creatine Kinase (39-308) U/L Result Diagrams: 09/26/19 04:00 09/26/19 04:00 Sepsis Event Note - Evaluation Sepsis Screening Result: No Definite Risk - Focused Exam Vital Signs: Vital Signs Temp Pulse Pulse Resp BP BP Pulse Ox 09/26/19 12:11 37.2 C 107 H 16 139/90 94 L 09/26/19 08:40 82 104/72 09/26/19 07:28 36.6 C 67 16 104/72 94 L 09/26/19 03:00 36.2 C 110 H 16 137/89 91 L Date Exam was Performed: 09/26/19 Time Exam was Performed: 13:55 Consult PN Assessment/Plan Procedures: Procedures AIRWAY INHALATION TREATMENT (10/12/16) ASSAY OF LIPASE (07/26/13) ASSAY OF MAGNESIUM (10/12/16) ASSAY OF PHOSPHORUS (10/12/16) ASSAY OF TROPONIN QUANT (04/21/15) ASSAY THYROID STIM HORMONE (06/05/16) COMPLETE CBC AUTOMATED (10/12/16) COMPLETE CBC W/AUTO DIFF WBC (06/05/16) COMPREHEN METABOLIC PANEL (10/12/16) CT ABD & PELVIS W/O CONTRAST (07/26/13) CT HEAD/BRAIN W/O DYE (06/05/16) CULTURE AEROBIC IDENTIFY (07/26/13) CULTURE SCREEN ONLY (10/08/16) EGD BIOPSY SINGLE/MULTIPLE (10/08/16) ELECTROCARDIOGRAM TRACING (10/12/16) EMERGENCY DEPT VISIT (06/05/16) EMERGENCY DEPT VISIT (10/26/13) EMERGENCY DEPT VISIT (07/26/13) EMERGENCY DEPT VISIT (07/26/13) FIBRIN DEGRADATION QUANT (04/21/15) HOT OR COLD PACKS THERAPY (03/15/16) MICROBE SUSCEPTIBLE LUCIA (07/26/13) MRI JOINT UPR EXTREM W/O DYE (01/06/16) PROTHROMBIN TIME (10/21/16) PT EVALUATION (02/12/16) RBC SED RATE NONAUTOMATED (06/05/16) ROUTINE VENIPUNCTURE (10/12/16) THER/PROPH/DIAG IV INF INIT (07/26/13) THERAPEUTIC EXERCISES (05/12/16) TISSUE EXAM BY PATHOLOGIST (10/12/16) TX/PRO/DX INJ NEW DRUG ADDON (07/26/13) URINALYSIS AUTO W/SCOPE (07/26/13) URINE BACTERIA CULTURE (07/26/13) X-RAY XM UPR GI TRC 1CNTRST (10/12/16) (1) Hip fracture SNOMED Code(s): 851114041 Code(s): S72.009A - FRACTURE OF UNSP PART OF NECK OF UNSP FEMUR, INIT Current Visit: No Comment: nondisplaced greater trochanter fracture Qualifiers: Encounter type: initial encounter Fracture type: closed Laterality: left Qualified Code(s): S72.002A - Fracture of unspecified part of neck of left femur, initial encounter for closed fracture Problem List Initiated/Reviewed/Updated: Yes My Orders Last 24 Hours: My Active Orders 09/26/19 13:22 Fingers Thumb Rt F5 [CR] Routine X-rays from [facility] independently reviewed and a nondisplaced fracture of the greater trochanter is present Plan: He may weight bear as tolerated with a walker, Ok to start PT, follow up with Ortho in approx 2 weeks
[2019-09-26] MEDS: Acetaminophen 325 MG Tab PO PRN (23:38)
[2019-09-27] MEDS: Metoprolol Tartrate 25 MG Tab PO SCH (09:04)
[2019-09-27] MEDS: Nicotine 14 MG/24 Hr Patch TRDERM SCH (09:06)
--- NOTE | 2019-09-27 11:14 | PCM.DCSUM1 ---
Discharge Summary - Hospital Course Brief History: Mr. Eric is a 78-year-old gentleman who was admitted through the emergency department with left hip pain and generalized muscle soreness secondary to a fall resulting in rhabdomyolysis and a greater trochanteric fracture of the left hip. - Discharge Data Discharge Date: 09/27/19 Discharge Disposition: Home, Self-Care 01 Condition: Fair - Referral to Home Health Primary Care Physician: PCP None Skilled Need: May weight-bear with use of a walker - Discharge Diagnosis/Problem(s) (1) CKD (chronic kidney disease) stage 3, GFR 30-59 ml/min SNOMED Code(s): 197119961 ICD Code: N18.3 - CHRONIC KIDNEY DISEASE, STAGE 3 (MODERATE) Status: Acute Current Visit: Yes (2) Hip fracture SNOMED Code(s): 077015040 ICD Code: S72.009A - FRACTURE OF UNSP PART OF NECK OF UNSP FEMUR, INIT Status: Acute Current Visit: No Problem Details: nondisplaced greater trochanter fracture Qualifiers: Encounter type: initial encounter Fracture type: closed Laterality: left Qualified Code(s): S72.002A - Fracture of unspecified part of neck of left femur, initial encounter for closed fracture (3) Rhabdomyolysis SNOMED Code(s): 282487807 ICD Code: M62.82 - RHABDOMYOLYSIS Status: Acute Current Visit: No (4) Essential hypertension SNOMED Code(s): 68459710 ICD Code: I10 - ESSENTIAL (PRIMARY) HYPERTENSION Status: Chronic Current Visit: No - Patient Summary/Data Consults: Consultations 09/25/19 15:31 Consult to Physician [CONS] Routine Consulting Provider: Jose Hernandez Courtlorenzo Call Completed to Consulting Physician: Yes Reason for Consult: Hip fracture PT Evaluation and Treatment [CONS] Routine Please Evaluate and Treat. PT Reason for Consult: Hip Fracture Special Instructions: WBAT This query below is only for informational purposes and is not editable. Hospital Course: Mr. Eric is a 78-year-old gentleman who was admitted as a direct admission from the clinic with a greater trochanteric hip fracture and rhabdomyolysis secondary to a fall last night and having spent the night on the bathroom floor. He reports that he unfortunately fell last night in the bathroom and was unable to get himself up so he spent the night on the floor. He noted significant hip pain and stiffness when he was able to get up this morning. He presented to the walk-in clinic for further evaluation. X-ray showed a greater trochanteric fracture, which is felt to not require surgical intervention. He is felt to be able to weight-bear but has had difficulty with ambulation. Laboratory tests obtained in the walk-in clinic show significant elevation in CK level at 6000 as well as an increase in his creatinine from baseline. He was given IV fluids for hydration. CK levels were monitored and by the time of discharge it improved significantly but not white normalized. Renal function also improved with hydration. He was seen and evaluated by Dr. Hernandez for orthopedic opinion. After review of the x-rays Dr. Hernandez did not feel that the fracture required surgical intervention. Recommendations were for weightbearing as tolerated with use of a walker. He was seen and evaluated by physical therapy and was felt to be fairly stable on ambulation and transfers with use of the walker. His INR was supratherapeutic and he did receive vitamin K, INR was low at the time of discharge and he will resume his usual dose of Coumadin. Follow-up in the Coumadin clinic will be September 30. Follow-up appointment will be scheduled with Dr. Hernandez in the orthopedic clinic in 2 weeks. Follow-up appointment with Dr. Ramos will be scheduled within 1 week, BMP should be obtained at the time of follow-up appointment. Activity will be weightbearing as tolerated with use of a walker and he will resume his usual diet. - Patient Instructions Diet: Low Sodium Other/Special Instructions: Follow-up appointment with Dr. Hernandez in 2 weeks. Follow-up appointment with Dr. Ramos within 1 week. Follow-up appointment in the Coumadin clinic September 30. - Discharge Plan *PRESCRIPTION DRUG MONITORING PROGRAM REVIEWED*: Not Applicable *COPY OF PRESCRIPTION DRUG MONITORING REPORT IN PATIENT CEFERINO: Not Applicable Home Medications: Home Meds Metoprolol Tartrate 25 mg PO DAILY 07/26/13 [History] Warfarin Sliding Scale [Coumadin Sliding Scale] 5 mg PO DAILY 06/05/16 [History] Albuterol [Ventolin HFA] 1 - 2 puff PO Q6HR PRN 09/25/19 [History] Warfarin [Coumadin] 2.5 mg PO DAILY 09/25/19 [History] Referrals: Jose Ramos MD [Physician] - 10/04/19 1:45 pm (You will have labs drawn at this appointment) Jose Hernandez MD [Physician] - 10/11/19 10:45 am (please arrive at 10:15 for XRay prior to appointment Please check in at the ER entrance) - Discharge Summary/Plan Comment DC Time >30 min.: No - Patient Data Vitals - Most Recent: Last Vital Signs Temp 98.2 F 09/27/19 07:32 Pulse 112 H 09/27/19 09:04 Resp 16 09/27/19 07:32 BP 140/85 09/27/19 09:04 Pulse Ox 94 L 09/27/19 07:32 Weight - Most Recent: 229 lb 6.4 oz I&O - Last 24 hours: Intake & Output 09/26/19 09/27/19 09/27/19 22:59 06:59 14:59 Intake Total 1360 1140 480 Output Total 500 200 Balance 860 940 480 Lab Results - Last 24 hrs: Laboratory Results - last 24 hr 09/27/19 09/27/19 09/27/19 Range/Units 04:00 04:00 04:00 WBC 9.3 (4.5-11.0) K/uL RBC 5.22 (4.30-5.90) M/uL Hgb 11.4 L (12.0-15.0) g/dL Hct 37.8 L (40.0-54.0) % MCV 72 L (80-98) fL MCH 22 L (27-31) pg MCHC 30 L (32-36) % Plt Count 267 (150-400) K/uL Neut % (Auto) 76 H (36-66) % Lymph % (Auto) 12 L (24-44) % [place] % (Auto) 12 H (2-6) % Eos % (Auto) 0 L (2-4) % Baso % (Auto) 0 (0-1) % PT 12.6 H (9.5-12.0) sec INR 1.18 D (0.80-1.20) Sodium 141 (140-148) mmol/L Potassium 3.9 (3.6-5.2) mmol/L Chloride 107 (100-108) mmol/L Carbon Dioxide 27 (21-32) mmol/L Anion Gap 6.8 (5.0-14.0) mmol/L BUN 19 H (7-18) mg/dL Creatinine 1.2 (0.8-1.3) mg/dL Est Cr Clr Drug Dosing 50.67 mL/min Estimated GFR (MDRD) 59 L (>60) Glucose 107 H (74-106) mg/dL Calcium 9.0 (8.5-10.1) mg/dL Creatine Kinase 1152 H (39-308) U/L Med Orders - Current: Current Medications Acetaminophen (Tylenol) 650 mg PO Q4H PRN PRN Reason: Pain (Mild 1-3)/fever Last Admin: 09/26/19 23:38 Dose: 650 mg Albuterol (Ventolin Hfa) 0 gm INH Q4H PRN PRN Reason: Cough Metoprolol Tartrate (Lopressor) 25 mg PO DAILY [facility] Last Admin: 09/27/19 09:04 Dose: 25 mg Nicotine (Habitrol) 14 mg TRDERM DAILY [facility] Last Admin: 09/27/19 09:06 Dose: Not Given Nicotine Polacrilex (Nicorelief) 2 mg CHEW Q1H PRN PRN Reason: Other Ondansetron HCl (Zofran) 4 mg IV Q4H PRN PRN Reason: Nausea/Vomiting Oxycodone HCl (Oxycodone) 5 mg PO Q4H PRN PRN Reason: Pain (moderate 4-6) Last Admin: 09/25/19 22:09 Dose: 5 mg Polyethylene Glycol (Miralax) 17 gm PO DAILY PRN PRN Reason: Constipation Last Admin: 09/27/19 07:39 Dose: 17 gm Senna/Docusate Sodium (Senna Plus) 1 tab PO BID [facility] Last Admin: 09/27/19 09:04 Dose: 1 tab Sodium Chloride (Saline Flush) 10 ml FLUSH ASDIRECTED PRN PRN Reason: Keep Vein Open Discontinued Medications Enoxaparin Sodium (Lovenox) 40 mg SUBCUT Q24H [facility] Last Admin: 09/25/19 18:19 Dose: 40 mg Sodium Chloride (Normal Saline) 1,000 mls @ 500 mls/hr IV ASDIRECTED [facility] Stop: 09/25/19 19:46 Last Admin: 09/25/19 17:03 Dose: 500 mls/hr Sodium Chloride (Normal Saline) 1,000 mls @ 125 mls/hr IV ASDIRECTED [facility] Last Admin: 09/26/19 03:06 Dose: 125 mls/hr Phytonadione 1 mg/ Sodium (Chloride) 50.5 mls @ 100 mls/hr IV ONETIME ONE Stop: 09/26/19 05:43 Last Admin: 09/26/19 05:38 Dose: 100 mls/hr Potassium Chloride (Klor-Con M20) 40 meq PO ONETIME ONE Stop: 09/26/19 09:01 Last Admin: 09/26/19 09:41 Dose: 40 meq Potassium Chloride (Klor-Con M20) 40 meq PO ONETIME ONE Stop: 09/26/19 17:01 Last Admin: 09/26/19 16:44 Dose: 40 meq Warfarin Sodium (Coumadin) 2.5 mg PO DAILY [facility] - Exam General: Reports: Alert, Oriented, Cooperative, Mild Distress Lungs: Reports: Clear to Auscultation, Normal Respiratory Effort, Decreased Breath Sounds Cardiovascular: Reports: Regular Rate, Regular Rhythm, No Murmurs GI/Abdominal Exam: Soft, Non-Tender, No Organomegaly, No Distention
[2019-09-27] MEDS: Acetaminophen 325 MG Tab PO PRN (11:25)
[2019-09-27] MEDS ORDERED: cefTRIAXone 1 GM in Sodium Chloride 0.9% 50 ML IV ONE (13:00)
[2019-09-27] MEDS ORDERED: Warfarin 5 MG Tab PO SCH (14:16)
--- NOTE | 2019-09-27 14:16 | PCM.SN.2 ---
- Free Text/Narrative Note: Mr. Eric has been ready for discharge and was feeling well, shortly before discharge he experienced shaking chills and was noted to have temperature elevation between 102 and 103 F. Urinalysis was obtained and noted to be consistent with infection. Urine culture has been obtained and he was started on ceftriaxone 1 g IV every 24 hours. Discharge plans will be canceled, he will be started on some IV fluids and kept another day or 2 until he is feeling improved from current urinary tract infection.
[2019-09-27] MEDS: Sodium Chloride 0.9% 1,000 ML IV SCH (20:01)
[2019-09-27] MEDS ORDERED: Dimethicone 20%/Zinc Oxide 25% 56 GM Spray Bottle TOP PRN (20:53)
[2019-09-28] MEDS: Sodium Chloride 0.9% 1,000 ML IV SCH (03:53)
[2019-09-28] MEDS: Metoprolol Tartrate 25 MG Tab PO SCH (08:53)
[2019-09-28] MEDS: Nicotine 14 MG/24 Hr Patch TRDERM SCH (08:53)
[2019-09-28] MEDS ORDERED: cefTRIAXone 1 GM in Sodium Chloride 0.9% 50 ML IV ONE (10:31)
--- NOTE | 2019-09-28 10:39 | PCM.DCSUM1 ---
Discharge Summary - Hospital Course HPI Initial Comments: Mr. Eric is a 78-year-old gentleman who was admitted through the emergency department with left hip pain and generalized muscle soreness secondary to a fall resulting in rhabdomyolysis and a greater trochanteric fracture of the left hip. Brief History: Mr. Eric is a 78-year-old gentleman who was admitted through the emergency department with left hip pain and generalized muscle soreness secondary to a fall resulting in rhabdomyolysis and a greater trochanteric fracture of the left hip. - Discharge Data Discharge Date: 09/28/19 Discharge Disposition: Home, Self-Care 01 Condition: Fair - Referral to Home Health Primary Care Physician: PCP None Skilled Need: May weight-bear with use of a walker - Discharge Diagnosis/Problem(s) (1) CKD (chronic kidney disease) stage 3, GFR 30-59 ml/min SNOMED Code(s): 328090070 ICD Code: N18.3 - CHRONIC KIDNEY DISEASE, STAGE 3 (MODERATE) Status: Acute Current Visit: Yes (2) Hip fracture SNOMED Code(s): 336674173 ICD Code: S72.009A - FRACTURE OF UNSP PART OF NECK OF UNSP FEMUR, INIT Status: Acute Current Visit: No Problem Details: nondisplaced greater trochanter fracture Qualifiers: Encounter type: initial encounter Fracture type: closed Laterality: left Qualified Code(s): S72.002A - Fracture of unspecified part of neck of left femur, initial encounter for closed fracture (3) Rhabdomyolysis SNOMED Code(s): 643665866 ICD Code: M62.82 - RHABDOMYOLYSIS Status: Acute Current Visit: No (4) Essential hypertension SNOMED Code(s): 53088427 ICD Code: I10 - ESSENTIAL (PRIMARY) HYPERTENSION Status: Chronic Current Visit: No (5) UTI (urinary tract infection) SNOMED Code(s): 82454578 ICD Code: N39.0 - URINARY TRACT INFECTION, SITE NOT SPECIFIED Status: Acute Current Visit: Yes - Patient Summary/Data Consults: Consultations 09/25/19 15:31 Consult to Physician [CONS] Routine Consulting Provider: Jose Hernandez Call Completed to Consulting Physician: Yes Reason for Consult: Hip fracture PT Evaluation and Treatment [CONS] Routine Please Evaluate and Treat. PT Reason for Consult: Hip Fracture Special Instructions: WBAT This query below is only for informational purposes and is not editable. Hospital Course: Mr. Eric is a 78-year-old gentleman who was admitted as a direct admission from the clinic with a greater trochanteric hip fracture and rhabdomyolysis secondary to a fall last night and having spent the night on the bathroom floor. He reports that he unfortunately fell last night in the bathroom and was unable to get himself up so he spent the night on the floor. He noted significant hip pain and stiffness when he was able to get up this morning. He presented to the walk-in clinic for further evaluation. X-ray showed a greater trochanteric fracture, which is felt to not require surgical intervention. He is felt to be able to weight-bear but has had difficulty with ambulation. Laboratory tests obtained in the walk-in clinic show significant elevation in CK level at 6000 as well as an increase in his creatinine from baseline. He was given IV fluids for hydration. CK levels were monitored and by the time of discharge it improved significantly but not white normalized. Renal function also improved with hydration. He was seen and evaluated by Dr. Hernandez for orthopedic opinion. After review of the x-rays Dr. Hernandez did not feel that the fracture required surgical intervention. Recommendations were for weightbearing as tolerated with use of a walker. He was seen and evaluated by physical therapy and was felt to be fairly stable on ambulation and transfers with use of the walker. His INR was supratherapeutic and he did receive vitamin K, INR was low at the time of discharge and he will resume his usual dose of Coumadin. Follow-up in the Coumadin clinic will be September 30. Follow-up appointment will be scheduled with Dr. Hernandez in the orthopedic clinic in 2 weeks. Follow-up appointment with Dr. Ramos will be scheduled within 1 week, BMP should be obtained at the time of follow-up appointment. Activity will be weightbearing as tolerated with use of a walker and he will resume his usual diet. Just prior to his discharge on September 26, Mr. Eric developed fever with shaking chills. Urinalysis was obtained which showed evidence of underlying infection. Urine culture was obtained, the results of which are pending at the time of this discharge. He was given IV ceftriaxone and restarted on IV fluids. He did well with this and by the following morning was afebrile and felt ready to go home. He will be given an additional dose of IV ceftriaxone prior to discharge. He will then complete an additional 3 days of oral antibiotic therapy with cephalexin 500 mg every 8 hours. - Patient Instructions Diet: Low Sodium Other/Special Instructions: Follow-up appointment with Dr. Hernandez in 2 weeks. Follow-up appointment with Dr. Ramos within 1 week. Follow-up appointment in the Coumadin clinic September 30. - Discharge Plan *PRESCRIPTION DRUG MONITORING PROGRAM REVIEWED*: Not Applicable *COPY OF PRESCRIPTION DRUG MONITORING REPORT IN PATIENT CEFERINO: Not Applicable Prescriptions/Med Rec: cephALEXin [Cephalexin] 500 mg PO Q8H #9 capsule Lactobacillus Rhamnosus GG [Culturelle] 1 cap PO BID #60 cap Home Medications: Home Meds Metoprolol Tartrate 25 mg PO DAILY 07/26/13 [History] Warfarin Sliding Scale [Coumadin Sliding Scale] 5 mg PO DAILY 06/05/16 [History] Albuterol [Ventolin HFA] 1 - 2 puff PO Q6HR PRN 09/25/19 [History] Warfarin [Coumadin] 2.5 mg PO DAILY 09/25/19 [History] Lactobacillus Rhamnosus GG [Culturelle] 1 cap PO BID #60 cap 09/28/19 [Rx] Warfarin [Coumadin] 5 mg PO DAILY@1300 tablet 09/28/19 [Rx] cephALEXin [Cephalexin] 500 mg PO Q8H #9 capsule 09/28/19 [Rx] Referrals: Jose Ramos MD [Physician] - 10/04/19 1:45 pm (You will have labs drawn at this appointment) Coumadin,Clinic [Ordering Only Provider] - 10/01/19 10:30 am ( PLEASE NOTE [facility]ADIN [facility] AT [facility] Jose Hernandez MD [Physician] - 10/11/19 10:45 am (please arrive at 10:15 for XRay prior to appointment Please check in at the ER entrance) - Discharge Summary/Plan Comment DC Time >30 min.: No - Patient Data Vitals - Most Recent: Last Vital Signs Temp 97.1 F 09/28/19 07:15 Pulse 60 09/28/19 08:53 Resp 16 09/28/19 07:15 BP 135/68 05/15/20 08:53 Pulse Ox 97 09/28/19 07:15 Weight - Most Recent: 232 lb 6.4 oz I&O - Last 24 hours: Intake & Output 09/27/19 09/28/19 09/28/19 22:59 06:59 14:59 Intake Total 540 1897 Output Total 250 550 250 Balance 290 1347 -250 Lab Results - Last 24 hrs: Laboratory Results - last 24 hr 09/27/19 09/28/19 09/28/19 Range/Units 11:19 04:30 04:30 WBC 16.1 H (4.5-11.0) K/uL RBC 5.07 (4.30-5.90) M/uL Hgb 11.1 L (12.0-15.0) g/dL Hct 36.8 L (40.0-54.0) % MCV 73 L (80-98) fL MCH 22 L (27-31) pg MCHC 30 L (32-36) % Plt Count 254 (150-400) K/uL Neut % (Auto) 82 H (36-66) % Lymph % (Auto) 9 L (24-44) % [place] % (Auto) 9 H (2-6) % Eos % (Auto) 0 L (2-4) % Baso % (Auto) 0 (0-1) % PT (9.5-12.0) sec INR (0.80-1.20) Sodium 142 (140-148) mmol/L Potassium 3.8 (3.6-5.2) mmol/L Chloride 109 H (100-108) mmol/L Carbon Dioxide 26 (21-32) mmol/L Anion Gap 10.8 (5.0-14.0) mmol/L BUN 17 (7-18) mg/dL Creatinine 1.1 (0.8-1.3) mg/dL Est Cr Clr Drug Dosing 55.27 mL/min Estimated GFR (MDRD) > 60 (>60) Glucose 119 H (74-106) mg/dL Calcium 8.4 L (8.5-10.1) mg/dL Creatine Kinase 396 H (39-308) U/L Urine Color Yellow (YELLOW) Urine Appearance Turbid A (CLEAR) Urine pH 5.5 (5.0-8.0) Ur Specific [place] 1.020 (1.008-1.030) Urine Protein 30 H (NEGATIVE) mg/dL Urine Glucose (UA) Negative (NEGATIVE) mg/dL Urine Ketones Negative (NEGATIVE) mg/dL Urine Occult Blood Moderate H (NEGATIVE) Urine Nitrite Positive H (NEGATIVE) Urine Bilirubin Negative (NEGATIVE) Urine Urobilinogen 0.2 (0.2-1.0) EU/dL Ur Leukocyte Esterase Large H (NEGATIVE) Urine RBC 30-40 H (0-5) Urine WBC Packed H (0-5) Ur Epithelial Cells Few Amorphous Sediment Not seen Urine Bacteria Many Urine Mucus Not seen 09/28/19 Range/Units 04:30 WBC (4.5-11.0) K/uL RBC (4.30-5.90) M/uL Hgb (12.0-15.0) g/dL Hct (40.0-54.0) % MCV (80-98) fL MCH (27-31) pg MCHC (32-36) % Plt Count (150-400) K/uL Neut % (Auto) (36-66) % Lymph % (Auto) (24-44) % [place] % (Auto) (2-6) % Eos % (Auto) (2-4) % Baso % (Auto) (0-1) % PT 20.3 H (9.5-12.0) sec INR 1.95 H (0.80-1.20) Sodium (140-148) mmol/L Potassium (3.6-5.2) mmol/L Chloride (100-108) mmol/L Carbon Dioxide (21-32) mmol/L Anion Gap (5.0-14.0) mmol/L BUN (7-18) mg/dL Creatinine (0.8-1.3) mg/dL Est Cr Clr Drug Dosing mL/min Estimated GFR (MDRD) (>60) Glucose (74-106) mg/dL Calcium (8.5-10.1) mg/dL Creatine Kinase (39-308) U/L Urine Color (YELLOW) Urine Appearance (CLEAR) Urine pH (5.0-8.0) Ur Specific [place] (1.008-1.030) Urine Protein (NEGATIVE) mg/dL Urine Glucose (UA) (NEGATIVE) mg/dL Urine Ketones (NEGATIVE) mg/dL Urine Occult Blood (NEGATIVE) Urine Nitrite (NEGATIVE) Urine Bilirubin (NEGATIVE) Urine Urobilinogen (0.2-1.0) EU/dL Ur Leukocyte Esterase (NEGATIVE) Urine RBC (0-5) Urine WBC (0-5) Ur Epithelial Cells Amorphous Sediment Urine Bacteria Urine Mucus LUCIA Results - Last 24 hrs: Microbiology 09/27/19 12:12 Urine Culture - Preliminary Urine, Clean Catch Med Orders - Current: Current Medications Acetaminophen (Tylenol) 650 mg PO Q4H PRN PRN Reason: Pain (Mild 1-3)/fever Last Admin: 09/27/19 11:25 Dose: 650 mg Albuterol (Ventolin Hfa) 0 gm INH Q4H PRN PRN Reason: Cough Dimethicone/Zinc Oxide (Rash Relief-Zinc Oxide [place]) 0 gm TOP ASDIRECTED PRN PRN Reason: Rash Sodium Chloride (Normal Saline) 1,000 mls @ 125 mls/hr IV ASDIRECTED [facility] Last Admin: 09/28/19 03:53 Dose: 125 mls/hr Ceftriaxone Sodium 1 gm/ (Sodium Chloride) 50 mls @ 100 mls/hr IV ONETIME ONE Stop: 09/28/19 11:00 Metoprolol Tartrate (Lopressor) 25 mg PO DAILY [facility] Last Admin: 09/28/19 08:53 Dose: 25 mg Nicotine (Habitrol) 14 mg TRDERM DAILY [facility] Last Admin: 09/28/19 08:53 Dose: Not Given Nicotine Polacrilex (Nicorelief) 2 mg CHEW Q1H PRN PRN Reason: Other Ondansetron HCl (Zofran) 4 mg IV Q4H PRN PRN Reason: Nausea/Vomiting Oxycodone HCl (Oxycodone) 5 mg PO Q4H PRN PRN Reason: Pain (moderate 4-6) Last Admin: 09/25/19 22:09 Dose: 5 mg Polyethylene Glycol (Miralax) 17 gm PO DAILY PRN PRN Reason: Constipation Last Admin: 09/27/19 07:39 Dose: 17 gm Senna/Docusate Sodium (Senna Plus) 1 tab PO BID [facility] Last Admin: 09/28/19 08:53 Dose: 1 tab Sodium Chloride (Saline Flush) 10 ml FLUSH ASDIRECTED PRN PRN Reason: Keep Vein Open Warfarin Sodium (Coumadin) 5 mg PO DAILY@1300 [facility] Last Admin: 09/27/19 16:27 Dose: 5 mg Discontinued Medications Enoxaparin Sodium (Lovenox) 40 mg SUBCUT Q24H [facility] Last Admin: 09/25/19 18:19 Dose: 40 mg Sodium Chloride (Normal Saline) 1,000 mls @ 500 mls/hr IV ASDIRECTED [facility] Stop: 09/25/19 19:46 Last Admin: 09/25/19 17:03 Dose: 500 mls/hr Sodium Chloride (Normal Saline) 1,000 mls @ 125 mls/hr IV ASDIRECTED [facility] Last Admin: 09/26/19 03:06 Dose: 125 mls/hr Phytonadione 1 mg/ Sodium (Chloride) 50.5 mls @ 100 mls/hr IV ONETIME ONE Stop: 09/26/19 05:43 Last Admin: 09/26/19 05:38 Dose: 100 mls/hr Ceftriaxone Sodium 1 gm/ (Sodium Chloride) 50 mls @ 100 mls/hr IV ONETIME ONE Stop: 09/27/19 13:29 Last Admin: 09/27/19 12:26 Dose: 100 mls/hr Potassium Chloride (Klor-Con M20) 40 meq PO ONETIME ONE Stop: 09/26/19 09:01 Last Admin: 09/26/19 09:41 Dose: 40 meq Potassium Chloride (Klor-Con M20) 40 meq PO ONETIME ONE Stop: 09/26/19 17:01 Last Admin: 09/26/19 16:44 Dose: 40 meq Warfarin Sodium (Coumadin) 2.5 mg PO DAILY BLANKA - Exam General: Reports: Alert, Oriented, Cooperative, No Acute Distress Lungs: Reports: Clear to Auscultation, Normal Respiratory Effort Cardiovascular: Reports: Regular Rate, Regular Rhythm, No Murmurs GI/Abdominal Exam: Soft, Non-Tender, No Organomegaly, No Distention
[2019-09-28 11:02] VITALS: BP 144/62; PULSE 78
== END 2019-09-28 13:40 | disposition home or self-care (01) | DRG 557 ==
LOC: JP.MS 15:30
PROVIDERS: ADMIT Hospitalist; ATTEND Hospitalist
DX: M62.82 Rhabdomyolysis (principal); S72.115A Nondisplaced fracture of greater trochanter of left femur, initial encounter for closed fracture; N39.0 Urinary tract infection, site not specified; N17.9 Acute kidney failure, unspecified; I12.9 Hypertensive chronic kidney disease with stage 1 through stage 4 chronic kidney disease, or unspecified chronic kidney disease; N18.3 Chronic kidney disease, stage 3 (moderate); I48.91 Unspecified atrial fibrillation; E66.9 Obesity, unspecified; E86.0 Dehydration; F17.200 Nicotine dependence, unspecified, uncomplicated; Z79.01 Long term (current) use of anticoagulants; Z79.899 Other long term (current) drug therapy; W19.XXXA Unspecified fall, initial encounter; Y92.002 Bathroom of unspecified non-institutional (private) residence as the place of occurrence of the external cause
CPT/HCPCS: 36415; 80048; 81001; 82550; 85025; 85610; 87086; 87088; 87186; 97161-GP; 97530-GP; A9270-GY; J0696; J1650; J3430; J7030; J7050

== ENCOUNTER 2020-05-29 13:26 | Emergency (ER) | payer MEDICARE ==
--- NOTE | 2020-05-29 13:47 | EDM.PDOC ---
ED HPI GENERAL MEDICAL PROBLEM - General Chief Complaint: Upper Extremity Injury/Pain Stated Complaint: FALL Time Seen by Provider: 05/29/20 13:30 Source of Information: Reports: Patient, EMS History Limitations: Reports: No Limitations - History of Present Illness INITIAL COMMENTS - FREE TEXT/NARRATIVE: Ariel is a 79-year-old male presenting to the ED from [facility] after natasha taining a fall today. Patient was walking into a building and tripped on a step causing him to fall forward landing on his right side. Patient had epistaxis prior to the arrival of EMS and is unable to move his right upper extremity due to pain in the shoulder and elbow. He denies any loss of consciousness or headache. He has no vision changes. He denies any nausea or vomiting. The patient is on chronic anticoagulation with warfarin for atrial fibrillation. He denies any chest pain, shortness of breath, cough, nausea or vomiting, or diarrhea. He is currently being treated for urinary tract infection. He also sustained an injury to his right knee during the fall but has been able to ambulate. Right Upper Arm Pain Score (Numeric/FACES): 7 - Related Data Allergies Allergy/AdvReac Type Severity Reaction Status Date / Time No Known Allergies Allergy Verified 05/29/20 13:35 Home Meds: Home Meds Metoprolol Tartrate 25 mg PO DAILY 07/26/13 [History] Warfarin [Coumadin] 2.5 mg PO DAILY 09/25/19 [History] Warfarin [Coumadin] 5 mg PO DAILY@1300 tablet 09/28/19 [Rx] Acetaminophen/HYDROcodone [[place] 325-5 MG] 1 tab PO Q4H PRN #20 tab 05/29/20 [Rx] Past Medical History HEENT History: Reports: Allergic Rhinitis, Impaired Vision Cardiovascular History: Reports: Afib, Hypertension Gastrointestinal History: Reports: Hiatal Hernia, Other (See Below) Other Gastrointestinal History: perforated ulcer, temporary g tube Genitourinary History: Reports: Prostate Disorder Musculoskeletal History: Reports: Arthritis, Fracture Other Musculoskeletal History: history right wrist fracture. left hip FX Endocrine/Metabolic History: Reports: Obesity/BMI 30+ Hematologic History: Reports: Blood Transfusion(s) - Infectious Disease History Infectious Disease History: Reports: Chicken Pox, Measles - Past Surgical History HEENT Surgical History: Reports: None Cardiovascular Surgical History: Reports: None GI Surgical History: Reports: Bariatric Procedure, Colonoscopy, EGD, Hernandez Fundoplication Male Surgical History: Reports: None Endocrine Surgical History: Reports: None Musculoskeletal Surgical History: Reports: Other (See Below) Other Musculoskeletal Surgeries/Procedures:: pins in right wrist after wrist s urg. pins removed later Social & Family History - Family History Family Medical History: No Pertinent Family History - Caffeine Use Caffeine Use: Reports: Coffee, Soda Other Caffeine Use: 1-2 c/coffee 1 can soda in evening Review of Systems - Review of Systems Review Of Systems: See Below Constitutional: Reports: No Symptoms Eyes: Reports: No Symptoms Ears: Reports: No Symptoms Nose: Reports: Epistaxis (Resolved upon arrival of EMS.) Mouth/Throat: Reports: No Symptoms Respiratory: Reports: No Symptoms Cardiovascular: Reports: Irregular Heart Rate. Denies: Chest Pain GI/Abdominal: Reports: No Symptoms Genitourinary: Reports: Dysuria Musculoskeletal: Reports: Shoulder Pain (Acute right shoulder pain with reduced range of motion.), Arm Pain (Acute right arm and elbow pain), Back Pain (Chronic) Skin: Reports: Wound ED EXAM, GENERAL - Physical Exam Exam: See Below Exam Limited By: No Limitations General Appearance: Alert, Anxious, Moderate Distress Eye Exam: Bilateral Eye: EOMI, PERRL Ears: Normal External Exam, Normal Canal, Hearing Grossly Normal, Normal TMs Nose: Normal Inspection, Normal Mucosa, No Blood Throat/Mouth: Normal Inspection, Normal Lips, Normal Oropharynx, Normal Voice, No Airway Compromise Head: Atraumatic, Normocephalic Neck: Normal Inspection, Supple, Non-Tender, Full Range of Motion Respiratory/Chest: No Respiratory Distress, Lungs Clear, Normal Breath Sounds, No Accessory Muscle Use, Chest Non-Tender Cardiovascular: Normal Peripheral Pulses, Irregularly Irregular Peripheral Pulses: 2+: Radial (L), Radial (R) GI/Abdominal: Normal Bowel Sounds, Soft, Non-Tender, Distended, Hernia (Very large ventral hernia) Back Exam: Normal Inspection, Other (Limited examination of the back due to patient inability to move much with the fracture in the right humerus. No obvious tenderness to palpation of the thoracic or lumbar spine.) Extremities: Normal Capillary Refill, Arm Pain (Pain and deformity of the right upper arm.), Limited Range of Motion (Right arm both at the shoulder and elbow.) Neurological: Alert, Oriented, Normal Cognition, No Motor/Sensory Deficits, Other (Joy Coma Scale of 15) Psychiatric: Normal Affect, Anxious Skin Exam: Warm, Dry, Intact, Normal Color Lymphatic: No Adenopathy ED TRAUMA EXTREMITY PROCEDURES - Splinting Right Upper Extremity Pre-Procedure NV Status: Normal Post-Procedure NV Status: Normal Splint Material: Fiberglass Splint Design: Sugar Tong (Humeral coaptation splint), Sling Applied & Form Fitted By: Provider Provider Post-Splint Application NV Check: NV Status Normal Complications: No Course - Vital Signs Last Recorded V/S: Last Vital Signs Temp 37.1 C 05/29/20 13:31 Pulse 110 H 05/29/20 15:36 Resp 18 05/29/20 15:36 BP 170/110 H 05/29/20 15:36 Pulse Ox 95 05/29/20 15:36 - Orders/Labs/Meds Labs: Laboratory Tests 05/29/20 05/29/20 05/29/20 Range/Units 13:44 13:44 13:44 WBC 8.7 (4.5-11.0) K/uL RBC 5.27 (4.30-5.90) M/uL Hgb 12.2 (12.0-15.0) g/dL Hct 40.9 (40.0-54.0) % MCV 78 L (80-98) fL MCH 23 L (27-31) pg MCHC 30 L (32-36) % Plt Count 289 (150-400) K/uL Neut % (Auto) 65 (36-66) % Lymph % (Auto) 20 L (24-44) % [place] % (Auto) 11 H (2-6) % Eos % (Auto) 3 (2-4) % Baso % (Auto) 1 (0-1) % PT 17.4 H (9.5-12.0) sec INR 1.61 H D (0.80-1.20) Sodium 145 (140-148) mmol/L Potassium 4.2 (3.6-5.2) mmol/L Chloride 110 H (100-108) mmol/L Carbon Dioxide 26 (21-32) mmol/L Anion Gap 13.2 (5.0-14.0) mmol/L BUN 20 H (7-18) mg/dL Creatinine 1.0 (0.8-1.3) mg/dL Est Cr Clr Drug Dosing 59.85 mL/min Estimated GFR (MDRD) > 60 (>60) Glucose 98 (74-106) mg/dL Calcium 8.6 (8.5-10.1) mg/dL Total Bilirubin 0.7 (0.2-1.0) mg/dL AST 16 (15-37) U/L ALT 24 (12-78) U/L Alkaline Phosphatase 83 (46-116) U/L Total Protein 6.3 L (6.4-8.2) g/dL Albumin 3.1 L (3.4-5.0) g/dL Globulin 3.2 (2.3-3.5) g/dL Albumin/Globulin Ratio 1.0 L (1.2-2.2) Meds: Medications Discontinued Medications Generic Name Dose Route Start Last Admin Trade Name Freq PRN Reason Stop Dose Admin Hydrocodone Bitart/Acetaminophen 1 tab 05/29/20 15:44 [place] 325-5 Mg PO 05/29/20 15:45 ONETIME ONE Hydromorphone HCl 1 mg 05/29/20 14:11 05/29/20 14:41 Dilaudid IVPUSH 05/29/20 14:12 1 mg ONETIME ONE Administration Ondansetron HCl 4 mg 05/29/20 14:11 05/29/20 14:41 Zofran IVPUSH 05/29/20 14:12 4 mg ONETIME ONE Administration - Re-Assessments/Exams Free Text/Narrative Re-Assessment/Exam: 05/29/20 15:00 I discussed the findings of the x-rays with Dr. Hernandez and orthopedic surgery who states that this midshaft torus humeral fracture usually will do well without the necessity for surgery. He recommended a coaptation splint or shoulder immobilizer and he will have the patient follow-up for a custom fitted splint in the next week or 2. We applied the coaptation splint (sugar tong around the humerus) and place the patient in a simple sling with limitations of no use of the right arm until directed to do so. Although a pplication was somewhat painful due to the patient's unstable fracture, the patient was able to tolerate it and was feeling somewhat better after its placement. Patient had good CMS after application. 05/29/20 15:55 my plan is to send the patient home with follow-up in orthopedic surgery. We will put him on hydrocodone 5/325 mg every 4 hours as needed for pain control with a prescription for 20 tablets. Contact information was provided for follow-up with Dr. Hernandez. Indications to return to the ED were discussed including the development of numbness or tingling, cyanosis or possible compromise of circulation, and worsening pain. I did inform the patient that his INR is subtherapeutic at 1.7. Departure - Departure Time of Disposition: 16:00 Disposition: Home, Self-Care 01 Clinical Impression: Fall (on) (from) other stairs and steps, initial encounter Oblique fracture of shaft of humerus Qualifiers: Encounter type: initial encounter Fracture type: closed Fracture alignment: displaced Laterality: right Qualified Code(s): S42.331A - Displaced oblique fracture of shaft of humerus, right arm, initial encounter for closed fracture - Discharge Information *PRESCRIPTION DRUG MONITORING PROGRAM REVIEWED*: Yes *COPY OF PRESCRIPTION DRUG MONITORING REPORT IN PATIENT CEFERINO: No Prescriptions: Acetaminophen/HYDROcodone [[place] 325-5 MG] 1 tab PO Q4H PRN #20 tab PRN Reason: Pain (Moderate 4-6) Instructions: Humerus Fracture Treated With Immobilization, [id number], How To Use a Sling, [id number], Cast or Splint Care, Adult Referrals: PCP,None [Primary Care Provider] - Forms: ED Department Discharge Care Plan Goals: You were placed in a coaptation splint and sling to immobilize the fracture. Please wear the sling when up and around. You will need to protect the splint from getting wet. This is 1 means of immobilizing the humerus bone which is the upper arm bone. Please return to the ED should you develop any numbness or tingling in the hand or arm, the hand or arm becoming dusky or blue, or cold that may indicate compromise of circulation. You will need to follow-up with the orthopedic surgeon at which point they will do a custom cast for the remainder of the healing. Which is usually 6 to 8 weeks. You should also contact the Coumadin clinic as your INR is subtherapeutic at 1.7 today. I have a prescription for you for hydrocodone for pain control. I also have a work excuse for you with no use of the right arm until authorized by orthopedics to resume activity. Sepsis Event Note (ED) - Focused Exam Vital Signs: Vital Signs Temp Pulse Resp BP Pulse Ox 05/29/20 15:36 110 H 18 170/110 H 95 05/29/20 13:31 37.1 C 91 18 182/110 H 93 L 05/29/20 13:30 37.1 C 91 18 182/110 H 93 L - Problem List & Annotations (1) Fall (on) (from) other stairs and steps, initial encounter SNOMED Code(s): 486563824 Code(s): W10.8XXA - FALL (ON) (FROM) OTHER STAIRS AND STEPS, INITIAL ENCOUNTER Status: Acute Priority: High Current Visit: Yes (2) Oblique fracture of shaft of humerus SNOMED Code(s): 42111341 Code(s): S42.333A - DISPLACED [place] FX SHAFT OF HUMERUS, UNSP ARM, INIT Status: Acute Priority: High Current Visit: Yes Qualifiers: Encounter type: initial encounter Fracture type: closed Fracture al ignment: displaced Laterality: right Qualified Code(s): S42.331A - Displaced oblique fracture of shaft of humerus, right arm, initial encounter for closed fracture - Problem List Review Problem List Initiated/Reviewed/Updated: Yes
[2020-05-29] MEDS ORDERED: Ondansetron 4 MG/2 ML SDV IVPUSH ONE (14:11)
[2020-05-29] MEDS ORDERED: HYDROmorphone 1 MG/ML Syringe IVPUSH ONE (14:11)
--- NOTE | 2020-05-29 14:38 | CR ---
Humerus Rt CLINICAL HISTORY: Fall, pain FINDINGS: There is an oblique displaced fracture of the midhumerus IMPRESSION: Fracture humerus.
--- NOTE | 2020-05-29 14:42 | CR ---
Forearm 2V Rt, Chest 1V Frontal CLINICAL HISTORY: Fall, pain FINDINGS: There is no acute fracture within the forearm. 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
--- NOTE | 2020-05-29 14:56 | CT ---
Head wo Cont CLINICAL HISTORY: Fall, on Coumadin COMPARISON: 2017 TECHNIQUE: Transverse scans were obtained from the base of the skull through the vertex without IV contrast on a multislice, multidetector CT scanner. Auto dosage reduction and iterative reconstruction techniques employed. FINDINGS: There is a small ischemic focus in the left the basal ganglia unchanged from 2017.. There is no mass effect, hemorrhage, or extraaxial collection. The basal cisterns and sulci over the convexities are prominent. The ventricles are mildly prominent. IMPRESSION: No acute intracranial process
--- NOTE | 2020-05-29 15:00 | CT ---
Cervical Spine wo Cont CLINICAL HISTORY: Fall TECHNIQUE: Multiple CT sections were taken through the cervical spine in the transaxial projection. Coronal and sagittal views were reconstructed. Images were viewed at bone as well as soft tissue windows on a digital workstation. Auto dosage reduction and iterative reconstruction techniques employed. FINDINGS: Sagittal images show the vertebral body heights to be maintained throughout. There is diffuse degenerative disease with disc space narrowing and some mild spondylosis. Alignment is maintained. Axial images show some mild spondylosis and uncovertebral joint spurring. There is mild right neural foraminal encroachment at C3-4 and C4-5. There is some bilateral neural foraminal encroachment at C5-6. IMPRESSION: No fracture or dislocation Diffuse degenerative disc disease with some spondylosis and uncovertebral joint spurring Multiple levels of bony foraminal encroachment described above
--- NOTE | 2020-05-29 15:07 | CT ---
Max Facial Sinus wo Cont CLINICAL HISTORY: Trauma, epistaxis TECHNIQUE: Multiple contiguous axial sections were obtained through the face and mandible with coronal and sagittal reconstructions. Auto dosage reduction and iterative reconstruction techniques employed. FINDINGS: There is moderate rightward deviation of the nasal septum. Nasal bones and anterior nasal spine appear intact. Bony orbits appear intact. Zygomatic arches are intact. There is chronic maxillary and ethmoid sinusitis. There is some mild mucosal thickening in the frontal sinus. Sphenoid sinuses clear. There is a moderate size dionte bullosa of the left middle turbinate. The nasal passages are restricted. The left mandibular condyle is slightly dislocated from the TMJ fossa. No fracture is identified. The patient has edentulous. IMPRESSION: No acute fracture identified The left mandibular condyle is subluxed anteriorly. Chronology is uncertain. No fractures Moderate pansinusitis Moderate narrowing of the nasal passages due to mucosal thickening deviated nasal septum and left dionte bullosa
[2020-05-29 15:38] VITALS: BP 170/110; PULSE 110
[2020-05-29] MEDS ORDERED: Acetaminophen/HYDROcodone 325-5 MG Tab PO ONE (15:44)
== END 2020-05-29 16:42 | disposition home or self-care (01) ==
LOC: JP.ED 13:26
DX: S42.331A Displaced oblique fracture of shaft of humerus, right arm, initial encounter for closed fracture (principal); I48.91 Unspecified atrial fibrillation; I10 Essential (primary) hypertension; E66.9 Obesity, unspecified; Z68.35 Body mass index [BMI] 35.0-35.9, adult; Z79.01 Long term (current) use of anticoagulants; Z79.899 Other long term (current) drug therapy; W10.9XXA Fall (on) (from) unspecified stairs and steps, initial encounter
CPT/HCPCS: 29105; 36415; 70450; 70486; 71045; 72125; 73060; 73090; 80053; 85025; 85610; 96374; 96375; 99284; A9270; J1170; J2405

== ENCOUNTER 2020-06-02 09:44 | Emergency (ER) | payer OTHER, MEDICARE ==
[2020-06-02 09:58] VITALS: BP 153/93; PULSE 104
--- NOTE | 2020-06-02 10:20 | EDM.PDOC ---
ED HPI GENERAL MEDICAL PROBLEM - General Chief Complaint: Upper Extremity Injury/Pain Stated Complaint: R HAND SWOLLEN Time Seen by Provider: 06/02/20 10:05 Source of Information: Reports: Patient, Old Records, RN History Limitations: Reports: No Limitations - History of Present Illness INITIAL COMMENTS - FREE TEXT/NARRATIVE: 79 yo male here with a complaint of a swollen R hand. He was seen here 3 d ago after a fall in which he incurred a R spiral humeral fx. He was given a splint, a sling, and a referral to Dr. Hernandez for this coming . He is on warfarin, but his INR 3 d ago was not high. Onset: Gradual Duration: Day(s):, Getting Worse Location: Reports: Upper Extremity, Right Quality: Reports: Dull Severity: Mild Improves with: Reports: Other (patient is unsure) Worsens with: Reports: Other (time) Context: Reports: Trauma (fell 3 d ago) Associated Symptoms: Reports: No Other Symptoms Treatments [employer]ER: Reports: Other (see below) (splint, sling, Shoals) - Related Data Allergies Allergy/AdvReac Type Severity Reaction Status Date / Time No Known Allergies Allergy Verified 06/02/20 10:12 Home Meds: Home Meds Metoprolol Tartrate 25 mg PO DAILY 07/26/13 [History] Warfarin [Coumadin] 2.5 mg PO DAILY 09/25/19 [History] Warfarin [Coumadin] 5 mg PO DAILY@1300 tablet 09/28/19 [Rx] Acetaminophen/HYDROcodone [Shoals 325-5 MG] 1 tab PO Q4H PRN #20 tab 05/29/20 [Rx] Past Medical History HEENT History: Reports: Allergic Rhinitis, Impaired Vision Cardiovascular History: Reports: Afib, Hypertension Gastrointestinal History: Reports: Hiatal Hernia, Other (See Below) Other Gastrointestinal History: perforated ulcer, temporary g tube Genitourinary History: Reports: Prostate Disorder Musculoskeletal History: Reports: Arthritis, Fracture Other Musculoskeletal History: history right wrist fracture. left hip FX Endocrine/Metabolic History: Reports: Obesity/BMI 30+ Hematologic History: Reports: Anticoagulation Therapy, Blood Transfusion(s) - Infectious Disease History Infectious Disease History: Reports: Chicken Pox, Measles - Past Surgical History HEENT Surgical History: Reports: None Cardiovascular Surgical History: Reports: None GI Surgical History: Reports: Bariatric Procedure, Colonoscopy, EGD, Hernandez Fundoplication Male Surgical History: Reports: None Endocrine Surgical History: Reports: None Musculoskeletal Surgical History: Reports: Other (See Below) Other Musculoskeletal Surgeries/Procedures:: pins in right wrist after wrist surg. pins removed later Social & Family History - Family History Family Medical History: No Pertinent Family History - Caffeine Use Caffeine Use: Reports: Coffee Other Caffeine Use: 1-2 c/coffee 1 can soda in evening Review of Systems - Review of Systems Review Of Systems: See Below Constitutional: Reports: No Symptoms Musculoskeletal: Reports: Other (R hand swelling) Skin: Reports: No Symptoms Neurological: Reports: No Symptoms ED EXAM, GENERAL - Physical Exam Exam: See Below Exam Limited By: No Limitations General Appearance: Alert, WD/WN, No Apparent Distress Extremities: Pedal Edema (R hand very edematous, no redness), Other (R arm in splint, he has slid half way out of his sling so that half his forearm, and hand is hanging out and in a dependent position. ). No: Increased Warmth, Redness Neurological: Alert, Oriented, CN II-XII Intact, Normal Cognition, No Motor/Sensory Deficits Course - Vital Signs Last Recorded V/S: Last Vital Signs Temp 36.1 C 06/02/20 09:57 Pulse 104 H 06/02/20 09:57 Resp 18 06/02/20 09:57 BP 153/93 H 06/02/20 09:57 Pulse Ox 98 06/02/20 09:57 Departure - Departure Time of Disposition: 10:20 Disposition: Home, Self-Care 01 Condition: Fair Clinical Impression: Dependent edema - Discharge Information *PRESCRIPTION DRUG MONITORING PROGRAM REVIEWED*: Not Applicable *COPY OF PRESCRIPTION DRUG MONITORING REPORT IN PATIENT CEFERINO: Not Applicable Instructions: Edema, [id number] Referrals: Jose Ramos MD [Primary Care Provider] - Additional Instructions: The R hand must be at or above the level of your heart to prevent or reduce swelling. Keep your appt for with Dr. Hernandez. Return as needed. Sepsis Event Note (ED) - Focused Exam Vital Signs: Vital Signs Temp Pulse Resp BP Pulse Ox 06/02/20 09:57 36.1 C 104 H 18 153/93 H 98
== END 2020-06-02 10:27 | disposition home or self-care (01) ==
LOC: JP.ED 09:44
DX: R60.0 Localized edema (principal); I48.91 Unspecified atrial fibrillation; I10 Essential (primary) hypertension; E66.9 Obesity, unspecified; Z68.37 Body mass index [BMI] 37.0-37.9, adult; Z79.01 Long term (current) use of anticoagulants; Z79.899 Other long term (current) drug therapy
CPT/HCPCS: 99282; 99283

== ENCOUNTER 2020-10-24 07:19 | Day surgery (SDC) | payer MEDICARE, OTHER ==
[2020-10-24] MEDS ORDERED: Propofol 200 MG/20 ML SDV ONE (07:28)
[2020-10-24] MEDS ORDERED: fentaNYL 100 MCG/2 ML SDV ONE (07:28)
[2020-10-24] MEDS ORDERED: Midazolam 1 MG/ML 2 ML SDV ONE (07:28)
[2020-10-24] MEDS ORDERED: Metoprolol Succinate 50 MG Tab.ER PO ONE (08:15)
[2020-10-24] MEDS ORDERED: Dextrose 5%-Lactated Ringers 1,000 ML IV SCH (08:30)
[2020-10-24] MEDS ORDERED: Lactated Ringers 1,000 ML ONE (10:00)
[2020-10-24 11:38] VITALS: BP 128/76; PULSE 90
--- NOTE | 2020-10-31 15:53 | OR ---
DATE OF PROCEDURE: 10/24/2020 SURGEON: Bjorn Roca MD PREOPERATIVE DIAGNOSIS: Positive occult blood in stool. POSTOPERATIVE DIAGNOSES: 1. Normal upper gastrointestinal endoscopic examination status post proximal gastrectomy with Mateo-en-Y reconstruction. 2. Multiple colon polyps including one very large polyp in the rectum. PROCEDURES PERFORMED: 1. Upper gastrointestinal endoscopy. 2. Flexible colonoscopy with: a. Polypectomy by snare technique x4. b. Injection of Shara ink into submucosa adjacent to large rectal polypectomy site. ANESTHESIA: IV sedation. INDICATIONS FOR PROCEDURE: This is a 79-year-old presenting with some occult blood in his stool. He is to undergo upper and lower endoscopy with biopsies and/or polypectomy as indicated. Potential risks including bleeding and perforation were discussed, and the patient wishes to proceed. DETAILS OF PROCEDURE: The patient was taken to the operating room and placed in a left lateral decubitus position. IV sedation was administered after which the upper GI endoscope was passed orally through the length of the esophagus, through the esophagogastric junction and proximal gastric pouch, and from there through the gastrojejunostomy roughly 20 cm into the Mateo limb. Findings included normal hypopharynx, larynx, upper esophageal sphincter, and esophageal body. At the EG junction, no significant hiatal hernia was present, and no significant inflammation noted in the gastric pouch. Gastrojejunostomy likewise was not inflamed, and the visualized portion of the Mateo limb was unremarkable. The scope was then withdrawn and the above findings reconfirmed. Attention was taken to the colonoscopy. Initial digital rectal exam was performed and was unremarkable. The colonoscope was then passed into the rectum with retroflexion revealing uncomplicated hemorrhoidal columns. The scope was then eventually passed to the cecum. The prep was quite good. Only a small amount of liquid stool was present. There were 2 small polyps in the splenic flexure, both of which were removed by means of cautery snare technique, and two 1 to 2 cm polyps in the rectum which were removed in a piecemeal fashion. These were in the 10 to 15 cm range from the dentate line, and they were sent as separate specimens. Following the polypectomy site, Shara ink was injected adjacent to the submucosa in the more distal of the rectal polyps should this come back being malignant. The scope was then withdrawn and the procedure then concluded. The plan will be to see the patient back in [facility] on 11/05[facility]2020. If the rectal polyps are malignant, he will need to undergo a segmental resection. These are high enough such that a primary anastomosis other than an ostomy would be adequate. If they are benign, given the extensiveness of the polyps and the piecemeal removal, repeat colonoscopy should be undertaken in 6 months. Bjorn Roca MD /[id number]
== END 2020-10-24 11:44 | disposition home or self-care (01) ==
LOC: JP.SDS 07:19
PROVIDERS: ATTEND Surgery
DX: D12.8 Benign neoplasm of rectum (principal); D17.5 Benign lipomatous neoplasm of intra-abdominal organs; K64.9 Unspecified hemorrhoids; I10 Essential (primary) hypertension; I48.91 Unspecified atrial fibrillation; E78.5 Hyperlipidemia, unspecified; F17.200 Nicotine dependence, unspecified, uncomplicated; Z98.84 Bariatric surgery status
CPT/HCPCS: 36415; 85610; 88305; A9270-GY; J2250; J2704; J3010; J7120; J7121

== ENCOUNTER 2021-01-13 08:33 | Day surgery (SDC) | payer MEDICARE ==
[~2021-01-13 08:33] MED LIST: Midazolam 1 MG/ML 2 ML SDV ONE; Propofol 200 MG/20 ML SDV ONE; fentaNYL 100 MCG/2 ML SDV ONE
[2021-01-13] MEDS ORDERED: Sodium Chloride 0.9% 1,000 ML IV SCH (09:15)
[2021-01-13] MEDS ORDERED: Albuterol/Ipratropium 3.0-0.5 MG/3 ML Neb Soln NEB ONE (10:00)
[2021-01-13] MEDS ORDERED: Hydrocortisone Sodium Succinate 100 MG/2 ML SDV IV PRN (10:25)
[2021-01-13] MEDS ORDERED: diphenhydrAMINE 50 MG/ML SDV IV PRN (10:25)
[2021-01-13] MEDS ORDERED: Famotidine 20 MG/2 ML SDV IV PRN (10:26)
[2021-01-13] MEDS ORDERED: Iron Sucrose Complex 500 MG in Sodium Chloride 0.9% 250 ML IV ONE (10:45)
[2021-01-13 14:40] VITALS: BP 153/84; PULSE 70
--- NOTE | 2021-01-28 23:16 | OR ---
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 POSTOPERATIVE DIAGNOSIS: No recurrent polypoid tissue identified. OPERATIVE PROCEDURE: Flexible colonoscopy. ANESTHESIA: IV sedation. INDICATION FOR PROCEDURE: The patient is roughly 3 months status post removal of 2 large rectal polyps and 2 of these some high-grade dysplasia present and removed in piecemeal manner. Given this, the patient was agreeable to an early followup colonoscopy to rule out any persistent or recurrent disease. The potential risks including bleeding and perforation were discussed, and the patient wishes to proceed. DETAILS OF PROCEDURE: The patient was taken to the operating room and placed in a left lateral decubitus position. IV sedation was administered after which the initial digital rectal exam was performed and was unremarkable. Colonoscope was then passed into the rectum with retroflexion revealing uncomplicated hemorrhoidal columns. Scope was eventually passed to the level of the cecum. The prep was fair. There was some liquid stool which would obscure some potential small areas of the colon or rectal mucosa. To that level, no additional pathology was seen. Specifically, there did not appear to be any recurrent or persistent polyp formation. Scope was then withdrawn, the above findings reconfirmed, and the procedure concluded. The patient was taken to the recovery room in satisfactory condition. Given the present high-grade dysplasia, the previously removed polyps, and the preoperative KUB less than perfect, would recommend a repeat colonoscopy in 1 year to rule out any recurrence of the polypoid disease previously identified. Bjorn Roca MD /[id number]
== END 2021-01-13 16:01 | disposition home or self-care (01) ==
LOC: JP.SDS 08:33
PROVIDERS: ATTEND Surgery
DX: Z09 Encounter for follow-up examination after completed treatment for conditions other than malignant neoplasm (principal); K64.9 Unspecified hemorrhoids; F17.200 Nicotine dependence, unspecified, uncomplicated; J44.9 Chronic obstructive pulmonary disease, unspecified; I48.91 Unspecified atrial fibrillation; I12.9 Hypertensive chronic kidney disease with stage 1 through stage 4 chronic kidney disease, or unspecified chronic kidney disease; N18.9 Chronic kidney disease, unspecified; Z86.010 Personal history of colon polyps
CPT/HCPCS: 45378; 94640; J1756; J2250; J2704; J3010; J7030; J7050; J7620-GY

== ENCOUNTER 2022-02-19 09:04 | Emergency (ER) | payer MEDICARE, OTHER | END 2022-02-19 10:30 | disposition home or self-care (01) | LOC: JP.ED 09:04 | DX: S49.92XA Unspecified injury of left shoulder and upper arm, initial encounter (principal); W19.XXXA Unspecified fall, initial encounter; Y92.69 Other specified industrial and construction area as the place of occurrence of the external cause | CPT/HCPCS: 73030-26-LT; 73030-LT; 99283 ==

== ENCOUNTER 2024-08-06 09:33 | Inpatient (IN) | payer MEDICARE ==
[2024-08-06] MEDS: Acetaminophen 325 MG Tab PO ONE (10:40)
[2024-08-06 10:42] LABS: BASOPHILS ABSOLUTE AUTO 0.03 K/uL (0.00-0.10); BASOPHILS PERCENT AUTO 0.2 % (0.1-1.3); EOSINOPHILS PERCENT AUTO 0.1 % (0.0-5.4); HEMOGLOBIN 12.8 g/dL (12.9-16.9); IMMATURE GRAN ABSOLUTE AUTO 0.13 K/uL (0.00-0.23); IMMATURE GRAN PERCENT AUTO 0.9 % (0.0-0.7); LYMPHOCYTES ABSOLUTE AUTO 0.74 K/uL (0.8-3.3); MEAN CORPUSCULAR HEMOGLOBIN 27.4 pg (31.6-35.5); MEAN CORPUSCULAR HGB CONC 32.8 g/dL (31.6-35.5); MEAN CORPUSCULAR VOLUME 83.3 fL (81.4-99.0); MONOCYTES ABSOLUTE AUTO 1.38 K/uL (0.20-0.90); MONOCYTES PERCENT AUTO 9.3 % (3.3-12.6); NEUTROPHILS ABSOLUTE AUTO 12.59 K/uL (1.0-7.6); NEUTROPHILS PERCENT AUTO 84.5 % (40.0-78.1); PLATELET COUNT,PLT 348 K/uL (130-375); RED BLOOD CELL COUNT 4.68 M/uL (4.14-5.76); WHITE BLOOD CELL COUNT,WBC 14.9 K/uL (3.2-11.0)
[2024-08-06 10:44] LABS: EOSINOPHILS ABSOLUTE AUTO 0.01 K/uL (0.00-0.40)
[2024-08-06 10:49] LABS: APPEARANCE,URINE CLOUDY (CLEAR); BILIRUBIN,URINE NEGATIVE (NEGATIVE); COLOR,URINE YELLOW (YELLOW); GLUCOSE,URINE NEGATIVE (NEGATIVE); KETONES,URINE NEGATIVE (NEGATIVE); LEUKOCYTE ESTERASE,URINE LARGE (NEGATIVE); NITRITE,URINE POSITIVE (NEGATIVE); OCCULT BLOOD,URINE LARGE (NEGATIVE); PROTEIN,URINE 100 mg/dL (NEGATIVE); UROBILINOGEN,URINE 0.2 EU/dL (0.2-1.0)
[2024-08-06 10:59] LABS: AMORPHOUS SEDIMENT,URINE FEW; BACTERIA,URINE MANY; EPITHELIAL CELLS,URINE MANY; MUCUS,URINE NOT SEEN; RBC,URINE >100 (0-5); WBC,URINE >100 (0-5)
[2024-08-06 10:59] LABS: INR 1.5; PROTHROMBIN TIME 15.2 sec (9.2-10.6)
[2024-08-06 11:03] LABS: A/G RATIO 0.5 (1.2-2.2); ALANINE AMINOTRANSFERASE,ALT 17 U/L (12-78); ALBUMIN 2.2 g/dL (3.4-5.0); ALKALINE PHOSPHATASE 183 U/L (46-116); ASPARTATE AMNIOTRANSFERASE,AST 39 U/L (15-37); BLOOD UREA NITROGEN,BUN 45 mg/dL (7-18); CALCIUM 9.7 mg/dL (8.5-10.1); CARBON DIOXIDE,CO2 25 mmol/L (21-32); CHLORIDE,CL 103 mmol/L (100-108); CREATININE 1.7 mg/dL (0.8-1.3); EST CRCL DRUG DOSING (CG) 31.86 mL/min; ESTIMATED GFR 40 mL/min (>60); GLUCOSE RANDOM 118 mg/dL (74-106); POTASSIUM,K 4.7 mmol/L (3.6-5.2); PROTEIN TOTAL,TP 6.4 g/dL (6.4-8.2); SODIUM,NA 139 mmol/L (140-148)
[2024-08-06 11:04] LABS: ANION GAP 15.7 mmol/L (5.0-14.0)
[2024-08-06] MEDS: Sodium Chloride 0.9% 1,000 ML IV ONE (11:32)
[2024-08-06] MEDS: Ciprofloxacin in D5W 400 MG in Premix Bag 1 BAG IV ONE (11:33)
[2024-08-06] MEDS ORDERED: Albuterol/Ipratropium 3.0-0.5 MG/3 ML Neb Soln NEB PRN (13:32)
[2024-08-06] MEDS ORDERED: Ondansetron 4 MG/2 ML SDV IV PRN (13:32)
[2024-08-06] MEDS ORDERED: Albuterol 0.083% 2.5 MG/3 ML Neb Soln NEB PRN (13:32)
[2024-08-06] MEDS ORDERED: Polyethylene Glycol 3350 Powder 17 GM Packet PO PRN (13:32)
[2024-08-06] MEDS ORDERED: Albuterol 6.7 GM Inhaler INH PRN (13:32)
[2024-08-06] MEDS ORDERED: Nicotine Polacrilex 2 MG Gum CHEW PRN (13:44)
[2024-08-06] MEDS: Nicotine 14 MG/24 Hr Patch TRDERM SCH (14:12)
[2024-08-06] MEDS: Sodium Chloride 0.9% 1,000 ML IV SCH (14:19)
[2024-08-06] MEDS: cefTRIAXone 2 GM in Sodium Chloride 0.9% 50 ML IV ONE (14:22)
[2024-08-06] MEDS: Dimethicone 20%/Zinc Oxide 25% 56 GM Spray Bottle TOP PRN (17:47)
[2024-08-06] MEDS: Acetaminophen 325 MG Tab PO PRN (17:50)
[2024-08-06] MEDS: Apixaban 5 MG Tab PO SCH (20:12)
[2024-08-07 05:44] LABS: HEMATOCRIT 39.7 % (38.4-49.7); MEAN CORPUSCULAR HEMOGLOBIN 27.3 pg (31.6-35.5); MEAN CORPUSCULAR HGB CONC 32.7 g/dL (31.6-35.5); MEAN CORPUSCULAR VOLUME 83.2 fL (81.4-99.0); RED BLOOD CELL COUNT 4.77 M/uL (4.14-5.76)
[2024-08-07 06:01] LABS: ANION GAP 12.8 mmol/L (5.0-14.0); CALCIUM 9.2 mg/dL (8.5-10.1); CREATININE 1.6 mg/dL (0.8-1.3); EST CRCL DRUG DOSING (CG) 33.85 mL/min; MAGNESIUM 1.9 mg/dL (1.8-2.4)
[2024-08-07] MEDS: Metoprolol Succinate 50 MG Tab.ER PO SCH (08:12)
[2024-08-07] MEDS: Hydrochlorothiazide/Triamterene 25-37.5 Tab PO SCH (08:18)
[2024-08-07] MEDS ORDERED: Sodium Chloride 0.9% 10 ML Syringe IV PRN (12:05)
[2024-08-07] MEDS: cefTRIAXone 1 GM in Sodium Chloride 0.9% 50 ML IV SCH (13:35)
[2024-08-07] MEDS: Melatonin 3 MG Tab PO SCH (23:25)
[2024-08-08 06:01] LABS: HEMATOCRIT 39.1 % (38.4-49.7); HEMOGLOBIN 12.8 g/dL (12.9-16.9); MEAN CORPUSCULAR HEMOGLOBIN 27.3 pg (31.6-35.5); MEAN CORPUSCULAR HGB CONC 32.7 g/dL (31.6-35.5); MEAN CORPUSCULAR VOLUME 83.4 fL (81.4-99.0); RED BLOOD CELL COUNT 4.69 M/uL (4.14-5.76); WHITE BLOOD CELL COUNT,WBC 11.5 K/uL (3.2-11.0)
[2024-08-08 06:14] LABS: ANION GAP 12.1 mmol/L (5.0-14.0); CALCIUM 9.6 mg/dL (8.5-10.1); CREATININE 2.1 mg/dL (0.8-1.3); EST CRCL DRUG DOSING (CG) 25.79 mL/min; POTASSIUM,K 3.8 mmol/L (3.6-5.2)
[2024-08-08] MEDS: oxyCODONE 5 MG Tab PO PRN (08:49)
[2024-08-08] MEDS: Sodium Chloride 0.9% 1,000 ML IV SCH ×2 (09:00→22:40)
[2024-08-08] MEDS: cefTRIAXone 2 GM in Sodium Chloride 0.9% 50 ML IV SCH (12:55)
[2024-08-09 05:48] LABS: HEMATOCRIT 38.5 % (38.4-49.7); HEMOGLOBIN 12.3 g/dL (12.9-16.9); MEAN CORPUSCULAR HEMOGLOBIN 27.2 pg (31.6-35.5); MEAN CORPUSCULAR HGB CONC 31.9 g/dL (31.6-35.5); RED BLOOD CELL COUNT 4.53 M/uL (4.14-5.76); WHITE BLOOD CELL COUNT,WBC 10.4 K/uL (3.2-11.0)
[2024-08-09 06:05] LABS: ANION GAP 11.4 mmol/L (5.0-14.0); CALCIUM 9.5 mg/dL (8.5-10.1); CREATININE 2.2 mg/dL (0.8-1.3); EST CRCL DRUG DOSING (CG) 24.62 mL/min; POTASSIUM,K 3.9 mmol/L (3.6-5.2)
[2024-08-09 11:26] VITALS: PULSE 96
[2024-08-09 15:31] VITALS: BP 115/52
== END 2024-08-09 16:00 | disposition home or self-care (01) | DRG 872 ==
LOC: JP.ED 09:33 → JP.MS 12:18
PROVIDERS: ADMIT Hospitalist; ATTEND Hospitalist
DX: A41.51 Sepsis due to Escherichia coli [E. coli] (principal); N17.9 Acute kidney failure, unspecified; N30.00 Acute cystitis without hematuria; R65.20 Severe sepsis without septic shock; Z66 Do not resuscitate; E86.0 Dehydration; Z68.32 Body mass index [BMI] 32.0-32.9, adult; R06.9 Unspecified abnormalities of breathing; Z98.84 Bariatric surgery status; Z88.8 Allergy status to other drugs, medicaments and biological substances; Z68.31 Body mass index [BMI] 31.0-31.9, adult; Z79.51 Long term (current) use of inhaled steroids; I48.91 Unspecified atrial fibrillation; J30.9 Allergic rhinitis, unspecified; M48.00 Spinal stenosis, site unspecified; H91.90 Unspecified hearing loss, unspecified ear; H54.7 Unspecified visual loss; I10 Essential (primary) hypertension; K44.9 Diaphragmatic hernia without obstruction or gangrene; N42.9 Disorder of prostate, unspecified; E66.9 Obesity, unspecified; M54.30 Sciatica, unspecified side; M16.12 Unilateral primary osteoarthritis, left hip; M17.11 Unilateral primary osteoarthritis, right knee; Z88.0 Allergy status to penicillin; Z79.01 Long term (current) use of anticoagulants; Z98.890 Other specified postprocedural states; Z79.899 Other long term (current) drug therapy
CPT/HCPCS: 36415; 72100; 72100-26; 73502-26-LT; 73502-LT; 73562-26-RT; 73562-RT; 80048; 80053; 81001; 83605; 83735; 83880; 85025; 85027; 85610; 86140; 87040; 87077; 87086; 87088; 87186; 96365; 97110-GP; 97161-GP; 97530-GP; 99222; 99231; 99232; 99238; 99284; 99284-25; A9270-GY; J0696; J0744; J7030